=== PATIENT | male | born 1955 | race Caucasian/White ===

== ENCOUNTER → 2016-10-24 | Outpatient (CLI) | payer MEDICARE, OTHER ==
[~2016-10-24] MED LIST: ACET-784 PO; BISA10S PR; CEFT1FRO3 IV; CEPH500 PO; DIVA500T35 PO; LEVO150 PO; OLAN10TA3 PO; PALI3 PO; PANT40TA25 PO; SENN-30 PO; SULF-168 PO; TRAZ-147 PO; TRI115O TP; VITAD1000 PO
[2016-10-24 12:22] LABS: BASOPHILS % (AUTO) 0.4 % (0.0-2.0); EOSINOPHILS % (AUTO) 8.4 % (1.0-6.0); HEMATOCRIT 38.7 % (41-53); HEMOGLOBIN 12.6 g/dL (13.5-17.5); LYMPHOCYTES % (AUTO) 31.9 % (22.0-44.0); MEAN CORPUSCULAR HEMOGLOBIN 30.7 pg (26.0-34.0); MEAN CORPUSCULAR HGB CONC 32.7 G/dL (31.0-37.0); MEAN CORPUSCULAR VOLUME 94 fL (80-100); MONOCYTES # (AUTO) 0.8 K/uL (0.1-1.0); MONOCYTES % (AUTO) 8.4 % (2.0-9.0); NEUTROPHILS # (AUTO) 4.7 K/uL (1.8-7.7); NEUTROPHILS % (AUTO) 50.9 % (40.0-70.0); PLATELET COUNT (AUTO) 225 K/uL (150-450); RED BLOOD CELL COUNT(AUTO) 4.12 MIL/uL (4.50-5.90); RED CELL DISTRIBUTION WIDTH 13.9 % (11.5-14.5); WHITE BLOOD COUNT (AUTO) 9.3 K/uL (4.5-11.0)
[2016-10-24 12:54] LABS: CALCIUM, TOTAL 8.9 mg/dL (8.8-10.5); CREATININE 1.79 mg/dL (0.60-1.30); THYROID STIMULATING HORMONE 0.11 uIU/mL (0.36-3.74)
== END | disposition home or self-care (01) ==
LOC: LABPV 11:18
PROVIDERS: ATTEND Internal Medicine
DX: E20.9 Hypoparathyroidism, unspecified (principal); E03.9 Hypothyroidism, unspecified; K59.00 Constipation, unspecified
CPT/HCPCS: 84443

== ENCOUNTER 2019-07-01 14:30 | Inpatient (IN) | payer MEDICARE, MEDICAID ==
[~2019-07-01] VITALS: Ht 182.9 cm; Wt 82.9 kg
[~2019-07-01 14:30] MED LIST changes: -BISA10S PR; +BISA10SU11 PR; -CEFT1FRO3 IV; -CEPH500 PO; +DIVA-78 PO; -DIVA500T35 PO; -PALI3 PO; +SENN-176 PO; -SENN-30 PO; -SULF-168 PO; -TRAZ-147 PO; +TRAZ-220 PO; -TRI115O TP; -VITAD1000 PO
[2019-07-01 14:39] VITALS: BP 119/77
[2019-07-01] MEDS ORDERED: FISH1CAP27 PO (15:08)
[2019-07-01] MEDS ORDERED: ASPI81 PO (15:08)
[2019-07-01] MEDS ORDERED: LEVO112T4 PO (15:08)
[2019-07-01] MEDS ORDERED: ERGO400C PO (15:08)
[2019-07-01] MEDS ORDERED: POTA99TA25 PO (15:08)
[2019-07-01] MEDS ORDERED: OLAN10TA3 PO (15:08)
[2019-07-01] MEDS ORDERED: FURO20 PO (15:08)
[2019-07-01] MEDS ORDERED: MIRT15 PO (15:08)
[2019-07-01] MEDS ORDERED: DOXY150T5 PO (15:08)
[2019-07-01] MEDS ORDERED: QUET100T PO (15:08)
[2019-07-01] MEDS ORDERED: DOCU-275 PO (15:08)
[2019-07-01 16:30] VITALS: BP 122/85
[2019-07-01] MEDS ORDERED: -PHARMACY VACCINE NOTE- MISC ONE (18:30)
[2019-07-01] MEDS ORDERED: CloNIDine HCL 0.1 MG TABLET PO PRN (22:00)
[2019-07-01] MEDS ORDERED: ONDANSETRON HCL 4 MG TABLET PO PRN (22:00)
[2019-07-01] MEDS ORDERED: LOPERAMIDE HCL 2 MG CAPSULE PO PRN (22:00)
[2019-07-01] MEDS ORDERED: MAGNESIUM HYDROXIDE SUSPENSION 30 ML UDCUP PO PRN (22:00)
[2019-07-01] MEDS ORDERED: NICOTINE 14 MG/24 HOUR PATCH TD PRN (22:00)
[2019-07-01] MEDS ORDERED: PETROLATUM,WHITE 28 GM JELLY TP PRN (22:00)
[2019-07-01] MEDS ORDERED: MAG HYDROX/AL HYDROX/SIMETH ES 30 ML SUSPENSION UDCUP PO PRN (22:00)
[2019-07-01] MEDS ORDERED: ALBUTEROL SULFATE HFA 90 MCG/PUFF 8 GM INHALER IH PRN (22:00)
[2019-07-01] MEDS ORDERED: GuaiFENesin/D-METHORPHAN [SUGAR-FREE] 200-20MG/10 ML SYRUP UDCUP PO PRN (22:00)
[2019-07-01] MEDS: LORazepam 2 MG TABLET PO PRN (23:25)
[2019-07-02 00:14] VITALS: BP 150/99
[2019-07-02 01:59] VITALS: BP 117/75
[2019-07-02 03:24] VITALS: BP 117/75
[2019-07-02] MEDS: LEVOTHYROXINE SODIUM 75 MCG TABLET PO SCH (06:47)
[2019-07-02 07:11] LABS: BASOPHILS % (AUTO) 1.2 % (0.0-2.0); EOSINOPHILS % (AUTO) 4.6 % (1.0-6.0); HEMATOCRIT 29.6 % (41-53); HEMOGLOBIN 10.1 g/dL (13.5-17.5); LYMPHOCYTES # (AUTO) 2.5 K/uL (1.0-4.8); LYMPHOCYTES % (AUTO) 32.4 % (22.0-44.0); MEAN CORPUSCULAR HEMOGLOBIN 29.3 pg (26.0-34.0); MEAN CORPUSCULAR VOLUME 86 fL (80-100); MONOCYTES # (AUTO) 0.7 K/uL (0.1-1.0); NEUTROPHILS % (AUTO) 52.8 % (40.0-70.0); PLATELET COUNT (AUTO) 465 K/uL (150-450); RED BLOOD CELL COUNT(AUTO) 3.44 MIL/uL (4.50-5.90); RED CELL DISTRIBUTION WIDTH 15.2 % (11.5-14.5)
[2019-07-02 07:33] LABS: APPEARANCE,URINE CLEAR (CLEAR); BILIRUBIN,URINE NEGATIVE (NEGATIVE); GLUCOSE, URINE (UA) NEGATIVE (NEGATIVE); KETONES,URINE NEGATIVE (NEGATIVE); LEUKOCYTE ESTERASE ,URINE NEGATIVE (NEGATIVE); NITRATE,URINE NEGATIVE (NEGATIVE); OCCULT BLOOD,URINE MODERATE (NEGATIVE); PH,URINE 5.5 (5.0-8.0); PROTEIN,URINE NEGATIVE (NEGATIVE); UROBILINOGEN,URINE 0.2 mg/dL (<=1.0)
[2019-07-02 07:35] LABS: ALBUMIN 2.9 g/dL (3.4-5.0); BILIRUBIN,TOTAL 0.3 mg/dL (0.1-1.0); CALCIUM, TOTAL 8.6 mg/dL (8.8-10.5); CHOL/HDL RATIO 2.8 (4.2-7.3); CREATININE 1.22 mg/dL (0.60-1.30); FREE T4 (FREE THYROXINE) 1.46 ng/dL (0.76-1.46); POTASSIUM 4.4 mmol/L (3.5-5.1); THYROID STIMULATING HORMONE 2.2 uIU/mL (0.36-3.74); TOTAL PROTEIN, SERUM 5.8 g/dL (6.4-8.2)
[2019-07-02 07:38] LABS: AMPHET/METH SCREEN,URINE NEGATIVE (NEGATIVE); BARBITURATE SCREEN, URINE NEGATIVE (NEGATIVE); BENZODIAZEPINES SCREEN,URINE NEGATIVE (NEGATIVE); CANNABINOID SCREEN,URINE NEGATIVE (NEGATIVE); COCAINE SCREEN,URINE NEGATIVE (NEGATIVE); METHADONE SCREEN, URINE NEGATIVE (NEGATIVE); OPIATE SCREEN,URINE NEGATIVE (NEGATIVE); PHENCYCLIDINE SCREEN,URINE NEGATIVE (NEGATIVE)
[2019-07-02 08:00] LABS: BACTERIA,URINE None Seen /HPF (None Seen); RBC,URINE 0-2 /HPF (0-2); SQUAMOUS EPITHELIAL CELL,UR Few /LPF (None Seen); WBC,URINE 0-2 /HPF (0-5)
[2019-07-02 08:22] VITALS: BP 102/67
[2019-07-02] MEDS: CHOLECALCIFEROL (VIT D3) 1,000 UNITS TABLET PO SCH (08:44)
[2019-07-02] MEDS: ASPIRIN 81 MG CHEWABLE TABLET PO SCH (08:44)
[2019-07-02] MEDS: OMEGA-3/DHA/EPA/FISH OIL 1,000 MG CAPSULE PO SCH (08:44)
[2019-07-02] MEDS: DOXYCYCLINE HYCLATE 100 MG CAPSULE PO SCH ×2 (08:44→16:13)
[2019-07-02] MEDS: NICOTINE 21 MG/24 HOUR PATCH TD SCH (08:50)
[2019-07-02] MEDS ORDERED: FUROSEMIDE 20 MG TABLET PO SCH (09:00)
[2019-07-02] MEDS ORDERED: CHOL100018 PO (15:57)
[2019-07-02] MEDS ORDERED: SLOWK8 PO (15:57)
[2019-07-02] MEDS ORDERED: DOXY100C40 PO (15:57)
[2019-07-02] MEDS ORDERED: LEVO25TA9 PO (15:57)
[2019-07-02] MEDS ORDERED: LEVO200 PO (15:57)
[2019-07-02] MEDS: LEVOFLOXACIN 500 MG TABLET PO SCH (16:13)
[2019-07-02 16:19] VITALS: BP 125/77
[2019-07-02] MEDS: FUROSEMIDE 20 MG TABLET PO SCH (16:33)
[2019-07-02 17:49] VITALS: BP 125/77
[2019-07-02] MEDS: QUEtiapine FUMARATE 200 MG TABLET PO SCH (20:15)
[2019-07-02] MEDS: MIRTAZAPINE 15 MG TABLET PO SCH (20:19)
[2019-07-02] MEDS: OLANZapine 7.5 MG TABLET PO SCH (20:42)
[2019-07-03 05:43] VITALS: BP 100/60
[2019-07-03] MEDS: LEVOTHYROXINE SODIUM 75 MCG TABLET PO SCH (06:46)
[2019-07-03 08:49] VITALS: BP 135/84
[2019-07-03] MEDS: DOXYCYCLINE HYCLATE 100 MG CAPSULE PO SCH ×2 (10:02→16:44)
[2019-07-03] MEDS: FUROSEMIDE 20 MG TABLET PO SCH ×2 (10:03→16:44)
[2019-07-03] MEDS: LEVOFLOXACIN 500 MG TABLET PO SCH (10:03)
[2019-07-03] MEDS: OMEGA-3/DHA/EPA/FISH OIL 1,000 MG CAPSULE PO SCH (10:03)
[2019-07-03] MEDS: CHOLECALCIFEROL (VIT D3) 1,000 UNITS TABLET PO SCH (10:03)
[2019-07-03] MEDS: NICOTINE 21 MG/24 HOUR PATCH TD SCH (10:03)
[2019-07-03] MEDS: ASPIRIN 81 MG CHEWABLE TABLET PO SCH (10:04)
[2019-07-03] MEDS: LORazepam 2 MG TABLET PO PRN (16:48)
[2019-07-03 18:02] VITALS: BP 132/89
[2019-07-03] MEDS: OLANZapine 7.5 MG TABLET PO SCH (21:46)
[2019-07-03] MEDS: MIRTAZAPINE 15 MG TABLET PO SCH (21:46)
[2019-07-03] MEDS: QUEtiapine FUMARATE 200 MG TABLET PO SCH (21:47)
[2019-07-04] MEDS: LEVOTHYROXINE SODIUM 75 MCG TABLET PO SCH (07:00)
[2019-07-04] MEDS: ASPIRIN 81 MG CHEWABLE TABLET PO SCH (08:47)
[2019-07-04] MEDS: FUROSEMIDE 20 MG TABLET PO SCH ×2 (08:48→17:46)
[2019-07-04] MEDS: CHOLECALCIFEROL (VIT D3) 1,000 UNITS TABLET PO SCH (08:48)
[2019-07-04] MEDS: OMEGA-3/DHA/EPA/FISH OIL 1,000 MG CAPSULE PO SCH (08:48)
[2019-07-04] MEDS: LEVOFLOXACIN 500 MG TABLET PO SCH (08:48)
[2019-07-04] MEDS: IBUPROFEN 400 MG TABLET PO PRN (08:50)
[2019-07-04] MEDS: NICOTINE 21 MG/24 HOUR PATCH TD SCH (08:53)
[2019-07-04 09:23] VITALS: BP 100/77
[2019-07-04] MEDS: ACETAMINOPHEN 325 MG TABLET PO PRN (14:27)
[2019-07-04] MEDS: LORazepam 2 MG TABLET PO PRN (16:08)
[2019-07-04 16:21] VITALS: BP 129/85
[2019-07-04] MEDS: QUEtiapine FUMARATE 200 MG TABLET PO SCH (22:52)
[2019-07-04] MEDS: OLANZapine 7.5 MG TABLET PO SCH (22:52)
[2019-07-04] MEDS: MIRTAZAPINE 15 MG TABLET PO SCH (22:52)
[2019-07-05 05:58] VITALS: BP 115/75
[2019-07-05] MEDS: LEVOTHYROXINE SODIUM 75 MCG TABLET PO SCH (07:13)
[2019-07-05 07:33] LABS: CALCIUM, TOTAL 9.4 mg/dL (8.8-10.5); CREATININE 1.63 mg/dL (0.60-1.30); POTASSIUM 4.5 mmol/L (3.5-5.1)
[2019-07-05] MEDS: LEVOFLOXACIN 500 MG TABLET PO SCH (08:18)
[2019-07-05] MEDS: FUROSEMIDE 20 MG TABLET PO SCH ×2 (08:19→16:19)
[2019-07-05] MEDS: ASPIRIN 81 MG CHEWABLE TABLET PO SCH (08:19)
[2019-07-05] MEDS: CHOLECALCIFEROL (VIT D3) 1,000 UNITS TABLET PO SCH (08:19)
[2019-07-05] MEDS: OMEGA-3/DHA/EPA/FISH OIL 1,000 MG CAPSULE PO SCH (08:19)
[2019-07-05] MEDS: NICOTINE 21 MG/24 HOUR PATCH TD SCH (08:24)
[2019-07-05 14:32] VITALS: BP 100/67
[2019-07-05 16:59] VITALS: BP 130/66
[2019-07-05 17:00] VITALS: BP 131/66
[2019-07-05] MEDS: LORazepam 2 MG TABLET PO PRN (19:09)
[2019-07-05] MEDS: OLANZapine 10 MG TABLET PO SCH (20:04)
[2019-07-05] MEDS: MIRTAZAPINE 15 MG TABLET PO SCH (20:04)
[2019-07-05] MEDS: QUEtiapine FUMARATE 300 MG TABLET PO SCH (20:04)
[2019-07-06 05:13] VITALS: BP 123/82
[2019-07-06] MEDS: LEVOTHYROXINE SODIUM 75 MCG TABLET PO SCH (06:45)
[2019-07-06] MEDS: CHOLECALCIFEROL (VIT D3) 1,000 UNITS TABLET PO SCH (09:04)
[2019-07-06] MEDS: LEVOFLOXACIN 500 MG TABLET PO SCH (09:04)
[2019-07-06] MEDS: ASPIRIN 81 MG CHEWABLE TABLET PO SCH (09:04)
[2019-07-06] MEDS: OMEGA-3/DHA/EPA/FISH OIL 1,000 MG CAPSULE PO SCH (09:05)
[2019-07-06] MEDS: NICOTINE 21 MG/24 HOUR PATCH TD SCH (09:05)
[2019-07-06] MEDS: FUROSEMIDE 20 MG TABLET PO SCH (09:05)
[2019-07-06 09:45] VITALS: BP 105/67
[2019-07-06] MEDS: IBUPROFEN 400 MG TABLET PO PRN (10:06)
[2019-07-06 10:10] VITALS: BP 111/72
[2019-07-06 11:08] VITALS: BP 109/67
[2019-07-06 17:53] VITALS: BP 115/80
[2019-07-06] MEDS: ACETAMINOPHEN 325 MG TABLET PO PRN (17:57)
[2019-07-06] MEDS: QUEtiapine FUMARATE 300 MG TABLET PO SCH (20:39)
[2019-07-06] MEDS: MIRTAZAPINE 15 MG TABLET PO SCH (20:39)
[2019-07-06] MEDS: OLANZapine 10 MG TABLET PO SCH (20:39)
[2019-07-07] MEDS: ZOLPIDEM TARTRATE 10 MG TABLET PO PRN ×2 (00:07→20:28)
[2019-07-07 00:42] VITALS: BP 114/80
[2019-07-07] MEDS: LEVOTHYROXINE SODIUM 75 MCG TABLET PO SCH (06:49)
[2019-07-07] MEDS: CHOLECALCIFEROL (VIT D3) 1,000 UNITS TABLET PO SCH (08:00)
[2019-07-07] MEDS: NICOTINE 21 MG/24 HOUR PATCH TD SCH (08:01)
[2019-07-07] MEDS: LEVOFLOXACIN 500 MG TABLET PO SCH (08:01)
[2019-07-07] MEDS: OMEGA-3/DHA/EPA/FISH OIL 1,000 MG CAPSULE PO SCH (08:01)
[2019-07-07] MEDS: FUROSEMIDE 20 MG TABLET PO SCH (08:01)
[2019-07-07] MEDS: ASPIRIN 81 MG CHEWABLE TABLET PO SCH (08:01)
[2019-07-07 09:31] VITALS: BP 125/79
[2019-07-07] MEDS: ACETAMINOPHEN 325 MG TABLET PO PRN (09:54)
[2019-07-07 16:12] VITALS: BP 124/77
[2019-07-07] MEDS: QUEtiapine FUMARATE 100 MG TABLET PO PRN (16:20)
[2019-07-07] MEDS: OLANZapine 5 MG TABLET PO SCH (20:02)
[2019-07-07] MEDS: MIRTAZAPINE 15 MG TABLET PO SCH (20:03)
[2019-07-07] MEDS: QUEtiapine FUMARATE 200 MG TABLET PO SCH (20:04)
[2019-07-08 02:45] VITALS: BP 137/83
[2019-07-08] MEDS: IBUPROFEN 400 MG TABLET PO PRN (02:49)
[2019-07-08] MEDS: LORazepam 2 MG TABLET PO PRN ×2 (02:54→19:46)
[2019-07-08] MEDS: LEVOTHYROXINE SODIUM 75 MCG TABLET PO SCH (06:27)
[2019-07-08] MEDS: FUROSEMIDE 20 MG TABLET PO SCH (07:58)
[2019-07-08] MEDS: OMEGA-3/DHA/EPA/FISH OIL 1,000 MG CAPSULE PO SCH (07:59)
[2019-07-08] MEDS: CHOLECALCIFEROL (VIT D3) 1,000 UNITS TABLET PO SCH (07:59)
[2019-07-08] MEDS: ASPIRIN 81 MG CHEWABLE TABLET PO SCH (07:59)
[2019-07-08] MEDS: LEVOFLOXACIN 500 MG TABLET PO SCH (07:59)
[2019-07-08] MEDS: NICOTINE 21 MG/24 HOUR PATCH TD SCH (08:00)
[2019-07-08 10:11] VITALS: BP 115/78
[2019-07-08] MEDS: OLANZapine 5 MG TABLET PO SCH (19:46)
[2019-07-08] MEDS: QUEtiapine FUMARATE 200 MG TABLET PO SCH (19:46)
[2019-07-08] MEDS: MIRTAZAPINE 15 MG TABLET PO SCH (19:46)
[2019-07-08 19:49] VITALS: BP 120/87
[2019-07-09 00:50] VITALS: BP 138/93
[2019-07-09 03:49] VITALS: BP 127/89
[2019-07-09] MEDS: IBUPROFEN 400 MG TABLET PO PRN (03:51)
[2019-07-09] MEDS: LEVOTHYROXINE SODIUM 75 MCG TABLET PO SCH (06:34)
[2019-07-09] MEDS: NICOTINE 21 MG/24 HOUR PATCH TD SCH (08:14)
[2019-07-09] MEDS: LEVOFLOXACIN 500 MG TABLET PO SCH (08:14)
[2019-07-09] MEDS: CHOLECALCIFEROL (VIT D3) 1,000 UNITS TABLET PO SCH (08:14)
[2019-07-09] MEDS: ASPIRIN 81 MG CHEWABLE TABLET PO SCH (08:14)
[2019-07-09] MEDS: OMEGA-3/DHA/EPA/FISH OIL 1,000 MG CAPSULE PO SCH (08:15)
[2019-07-09] MEDS: FUROSEMIDE 20 MG TABLET PO SCH (08:15)
[2019-07-09 08:51] LABS: CALCIUM, TOTAL 9.2 mg/dL (8.8-10.5); CREATININE 1.58 mg/dL (0.60-1.30); POTASSIUM 4.2 mmol/L (3.5-5.1)
[2019-07-09 09:57] VITALS: BP 122/80
[2019-07-09 17:49] VITALS: BP 140/87
[2019-07-09] MEDS: QUEtiapine FUMARATE 200 MG TABLET PO SCH (21:31)
[2019-07-09] MEDS: OLANZapine 5 MG TABLET PO SCH (21:31)
[2019-07-09] MEDS: MIRTAZAPINE 15 MG TABLET PO SCH (21:31)
[2019-07-10 04:10] VITALS: BP 118/76
[2019-07-10] MEDS: ACETAMINOPHEN 325 MG TABLET PO PRN ×2 (04:12→14:15)
[2019-07-10] MEDS: LEVOTHYROXINE SODIUM 75 MCG TABLET PO SCH (07:04)
[2019-07-10] MEDS: LEVOFLOXACIN 500 MG TABLET PO SCH (08:56)
[2019-07-10] MEDS: OMEGA-3/DHA/EPA/FISH OIL 1,000 MG CAPSULE PO SCH (08:56)
[2019-07-10] MEDS: CHOLECALCIFEROL (VIT D3) 1,000 UNITS TABLET PO SCH (08:56)
[2019-07-10] MEDS: FUROSEMIDE 20 MG TABLET PO SCH (08:56)
[2019-07-10] MEDS: ASPIRIN 81 MG CHEWABLE TABLET PO SCH (08:56)
[2019-07-10] MEDS: NICOTINE 21 MG/24 HOUR PATCH TD SCH (08:58)
[2019-07-10 10:49] VITALS: BP 106/83
[2019-07-10 14:15] VITALS: BP 112/86
[2019-07-10 18:25] VITALS: BP 116/84
[2019-07-10] MEDS: IBUPROFEN 400 MG TABLET PO PRN (18:25)
[2019-07-10] MEDS: LORazepam 2 MG TABLET PO PRN ×2 (18:25→18:34)
[2019-07-10] MEDS: QUEtiapine FUMARATE 100 MG TABLET PO PRN (18:35)
[2019-07-10 19:13] VITALS: BP 113/81
[2019-07-10 19:25] VITALS: BP 101/63
[2019-07-10] MEDS: MIRTAZAPINE 15 MG TABLET PO SCH (21:23)
[2019-07-10] MEDS: QUEtiapine FUMARATE 200 MG TABLET PO SCH (21:23)
[2019-07-11 03:49] VITALS: BP 112/76
[2019-07-11] MEDS: LEVOTHYROXINE SODIUM 75 MCG TABLET PO SCH (06:52)
[2019-07-11] MEDS: CHOLECALCIFEROL (VIT D3) 1,000 UNITS TABLET PO SCH (09:10)
[2019-07-11] MEDS: OMEGA-3/DHA/EPA/FISH OIL 1,000 MG CAPSULE PO SCH (09:12)
[2019-07-11] MEDS: ASPIRIN 81 MG CHEWABLE TABLET PO SCH (09:12)
[2019-07-11] MEDS: NICOTINE 21 MG/24 HOUR PATCH TD SCH (09:13)
[2019-07-11] MEDS: LEVOFLOXACIN 500 MG TABLET PO SCH (09:13)
[2019-07-11 10:17] VITALS: BP 110/63
[2019-07-11 16:26] VITALS: BP 114/82
[2019-07-11] MEDS: MIRTAZAPINE 15 MG TABLET PO SCH (20:33)
[2019-07-11] MEDS: QUEtiapine FUMARATE 200 MG TABLET PO SCH (20:33)
[2019-07-11 21:09] VITALS: BP 129/77
[2019-07-11] MEDS: IBUPROFEN 400 MG TABLET PO PRN (21:09)
[2019-07-12 01:25] VITALS: BP 116/61
[2019-07-12] MEDS: ZOLPIDEM TARTRATE 10 MG TABLET PO PRN (01:27)
[2019-07-12 03:25] VITALS: BP 110/72
[2019-07-12] MEDS: ACETAMINOPHEN 325 MG TABLET PO PRN (03:31)
[2019-07-12] MEDS: LEVOTHYROXINE SODIUM 75 MCG TABLET PO SCH (07:03)
[2019-07-12 08:00] VITALS: BP 127/74
[2019-07-12] MEDS: ASPIRIN 81 MG CHEWABLE TABLET PO SCH (08:19)
[2019-07-12] MEDS: DOCUSATE SODIUM 100 MG CAPSULE PO PRN (08:19)
[2019-07-12] MEDS: FUROSEMIDE 20 MG TABLET PO SCH (08:20)
[2019-07-12] MEDS: LEVOFLOXACIN 500 MG TABLET PO SCH (08:20)
[2019-07-12] MEDS: OMEGA-3/DHA/EPA/FISH OIL 1,000 MG CAPSULE PO SCH (08:20)
[2019-07-12] MEDS: NICOTINE 21 MG/24 HOUR PATCH TD SCH (08:22)
[2019-07-12] MEDS: CHOLECALCIFEROL (VIT D3) 1,000 UNITS TABLET PO SCH (08:22)
[2019-07-12] MEDS: IBUPROFEN 400 MG TABLET PO PRN (09:31)
[2019-07-12 16:00] VITALS: BP 96/63
[2019-07-12] MEDS: QUEtiapine FUMARATE 200 MG TABLET PO SCH (20:29)
[2019-07-12] MEDS: MIRTAZAPINE 15 MG TABLET PO SCH (20:29)
[2019-07-13] MEDS: LEVOTHYROXINE SODIUM 75 MCG TABLET PO SCH (06:42)
[2019-07-13 07:12] LABS: CALCIUM, TOTAL 9.6 mg/dL (8.8-10.5); CREATININE 1.55 mg/dL (0.60-1.30)
[2019-07-13] MEDS: LEVOFLOXACIN 500 MG TABLET PO SCH (07:56)
[2019-07-13] MEDS: OMEGA-3/DHA/EPA/FISH OIL 1,000 MG CAPSULE PO SCH (07:57)
[2019-07-13] MEDS: LORazepam 2 MG TABLET PO PRN ×2 (07:57→15:39)
[2019-07-13] MEDS: ASPIRIN 81 MG CHEWABLE TABLET PO SCH (07:57)
[2019-07-13] MEDS: CHOLECALCIFEROL (VIT D3) 1,000 UNITS TABLET PO SCH (07:57)
[2019-07-13] MEDS: NICOTINE 21 MG/24 HOUR PATCH TD SCH (07:59)
[2019-07-13] MEDS: QUEtiapine FUMARATE 100 MG TABLET PO PRN ×2 (09:20→15:39)
[2019-07-13 09:31] VITALS: BP 132/78
[2019-07-13 10:31] VITALS: BP 124/72
[2019-07-13 13:08] VITALS: BP 123/71
[2019-07-13 16:34] VITALS: BP 140/79
[2019-07-13] MEDS: MIRTAZAPINE 15 MG TABLET PO SCH (20:43)
[2019-07-13] MEDS: ZOLPIDEM TARTRATE 10 MG TABLET PO PRN (20:43)
[2019-07-14 01:35] VITALS: BP 130/77
[2019-07-14] MEDS: LORazepam 2 MG TABLET PO PRN (01:42)
[2019-07-14] MEDS: LEVOTHYROXINE SODIUM 75 MCG TABLET PO SCH (06:44)
[2019-07-14] MEDS: ASPIRIN 81 MG CHEWABLE TABLET PO SCH (08:13)
[2019-07-14] MEDS: OMEGA-3/DHA/EPA/FISH OIL 1,000 MG CAPSULE PO SCH (08:13)
[2019-07-14] MEDS: CHOLECALCIFEROL (VIT D3) 1,000 UNITS TABLET PO SCH (08:14)
[2019-07-14] MEDS: LEVOFLOXACIN 500 MG TABLET PO SCH (08:14)
[2019-07-14] MEDS: FUROSEMIDE 20 MG TABLET PO SCH (08:14)
[2019-07-14] MEDS: NICOTINE 21 MG/24 HOUR PATCH TD SCH (08:14)
[2019-07-14 09:35] VITALS: BP 141/81
[2019-07-14 16:10] VITALS: BP 135/84
[2019-07-14 19:25] VITALS: BP 149/86
[2019-07-14] MEDS: IBUPROFEN 400 MG TABLET PO PRN (19:25)
[2019-07-14] MEDS: MIRTAZAPINE 15 MG TABLET PO SCH (20:50)
[2019-07-15 03:35] VITALS: BP 124/73
[2019-07-15] MEDS: LORazepam 2 MG TABLET PO PRN ×2 (03:43→17:34)
[2019-07-15] MEDS: QUEtiapine FUMARATE 100 MG TABLET PO PRN ×2 (03:43→17:34)
[2019-07-15] MEDS: LEVOTHYROXINE SODIUM 75 MCG TABLET PO SCH (06:52)
[2019-07-15] MEDS: ACETAMINOPHEN 325 MG TABLET PO PRN (06:53)
[2019-07-15] MEDS: CHOLECALCIFEROL (VIT D3) 1,000 UNITS TABLET PO SCH (08:02)
[2019-07-15] MEDS: LEVOFLOXACIN 500 MG TABLET PO SCH (08:02)
[2019-07-15] MEDS: ASPIRIN 81 MG CHEWABLE TABLET PO SCH (08:02)
[2019-07-15] MEDS: OMEGA-3/DHA/EPA/FISH OIL 1,000 MG CAPSULE PO SCH (08:02)
[2019-07-15] MEDS: NICOTINE 21 MG/24 HOUR PATCH TD SCH (08:03)
[2019-07-15 10:57] VITALS: BP 112/68
[2019-07-15 16:16] VITALS: BP 127/79
[2019-07-15] MEDS: MIRTAZAPINE 15 MG TABLET PO SCH (22:28)
[2019-07-15] MEDS: ZOLPIDEM TARTRATE 10 MG TABLET PO PRN (22:33)
[2019-07-16 03:31] VITALS: BP 121/72
[2019-07-16] MEDS: LORazepam 2 MG TABLET PO PRN ×2 (03:36→19:20)
[2019-07-16] MEDS: LEVOTHYROXINE SODIUM 75 MCG TABLET PO SCH (07:24)
[2019-07-16 08:00] VITALS: BP 124/78
[2019-07-16] MEDS: CHOLECALCIFEROL (VIT D3) 1,000 UNITS TABLET PO SCH (08:06)
[2019-07-16] MEDS: LEVOFLOXACIN 500 MG TABLET PO SCH (08:07)
[2019-07-16] MEDS: FUROSEMIDE 20 MG TABLET PO SCH (08:07)
[2019-07-16] MEDS: OMEGA-3/DHA/EPA/FISH OIL 1,000 MG CAPSULE PO SCH (08:07)
[2019-07-16] MEDS: ASPIRIN 81 MG CHEWABLE TABLET PO SCH (08:07)
[2019-07-16] MEDS: QUEtiapine FUMARATE 100 MG TABLET PO PRN ×2 (08:09→19:20)
[2019-07-16] MEDS: NICOTINE 21 MG/24 HOUR PATCH TD SCH (08:14)
[2019-07-16] MEDS ORDERED: BACITRACIN 28.4 GM OINTMENT TP PRN (08:45)
[2019-07-16] MEDS: IBUPROFEN 400 MG TABLET PO PRN (11:15)
[2019-07-16 18:17] VITALS: BP 123/72
[2019-07-16] MEDS: MIRTAZAPINE 15 MG TABLET PO SCH (20:12)
[2019-07-17 02:20] VITALS: BP 107/69
[2019-07-17 04:20] VITALS: BP 121/77
[2019-07-17] MEDS: IBUPROFEN 400 MG TABLET PO PRN ×2 (04:25→16:28)
[2019-07-17] MEDS: LEVOTHYROXINE SODIUM 75 MCG TABLET PO SCH (06:38)
[2019-07-17 06:50] LABS: CALCIUM, TOTAL 8.9 mg/dL (8.8-10.5); CREATININE 1.37 mg/dL (0.60-1.30); POTASSIUM 4.3 mmol/L (3.5-5.1)
[2019-07-17] MEDS: ASPIRIN 81 MG CHEWABLE TABLET PO SCH (07:52)
[2019-07-17] MEDS: OMEGA-3/DHA/EPA/FISH OIL 1,000 MG CAPSULE PO SCH (07:52)
[2019-07-17] MEDS: CHOLECALCIFEROL (VIT D3) 1,000 UNITS TABLET PO SCH (07:52)
[2019-07-17] MEDS: NICOTINE 21 MG/24 HOUR PATCH TD SCH (07:53)
[2019-07-17 08:03] VITALS: BP 127/73
[2019-07-17 16:28] VITALS: BP 130/76
[2019-07-17] MEDS: MIRTAZAPINE 15 MG TABLET PO SCH (21:12)
[2019-07-17] MEDS: DOCUSATE SODIUM 100 MG CAPSULE PO PRN (23:45)
[2019-07-18] MEDS: LORazepam 2 MG TABLET PO PRN (03:44)
[2019-07-18] MEDS: QUEtiapine FUMARATE 100 MG TABLET PO PRN (03:44)
[2019-07-18] MEDS: LEVOTHYROXINE SODIUM 75 MCG TABLET PO SCH (07:17)
[2019-07-18 08:15] VITALS: BP 113/75
[2019-07-18] MEDS: FUROSEMIDE 20 MG TABLET PO SCH (08:17)
[2019-07-18] MEDS: ASPIRIN 81 MG CHEWABLE TABLET PO SCH (08:17)
[2019-07-18] MEDS: OMEGA-3/DHA/EPA/FISH OIL 1,000 MG CAPSULE PO SCH (08:17)
[2019-07-18] MEDS: NICOTINE 21 MG/24 HOUR PATCH TD SCH (08:17)
[2019-07-18] MEDS: CHOLECALCIFEROL (VIT D3) 1,000 UNITS TABLET PO SCH (08:17)
[2019-07-18 19:55] VITALS: BP 119/84
[2019-07-18] MEDS: MIRTAZAPINE 15 MG TABLET PO SCH (20:54)
[2019-07-19 01:00] VITALS: BP 127/70
[2019-07-19] MEDS: IBUPROFEN 400 MG TABLET PO PRN (01:03)
[2019-07-19] MEDS: LEVOTHYROXINE SODIUM 75 MCG TABLET PO SCH (06:45)
[2019-07-19 08:02] VITALS: BP 114/75
[2019-07-19] MEDS: ASPIRIN 81 MG CHEWABLE TABLET PO SCH (08:09)
[2019-07-19] MEDS: OMEGA-3/DHA/EPA/FISH OIL 1,000 MG CAPSULE PO SCH (08:09)
[2019-07-19] MEDS: NICOTINE 21 MG/24 HOUR PATCH TD SCH (08:10)
[2019-07-19] MEDS: CHOLECALCIFEROL (VIT D3) 1,000 UNITS TABLET PO SCH (08:10)
== END 2019-07-19 15:35 | disposition home or self-care (01) | DRG 885 ==
LOC: B2X 15:18 → 3EX 07-02 17:43
DX: F20.0 Paranoid schizophrenia (principal); N18.3 Chronic kidney disease, stage 3 (moderate); B15.9 Hepatitis A without hepatic coma; L03.116 Cellulitis of left lower limb; L03.115 Cellulitis of right lower limb; E78.5 Hyperlipidemia, unspecified; E03.9 Hypothyroidism, unspecified; E55.9 Vitamin D deficiency, unspecified; F17.200 Nicotine dependence, unspecified, uncomplicated; G47.10 Hypersomnia, unspecified; I12.9 Hypertensive chronic kidney disease with stage 1 through stage 4 chronic kidney disease, or unspecified chronic kidney disease; K59.09 Other constipation; F32.9 Major depressive disorder, single episode, unspecified
CPT/HCPCS: 80307; 83036; 84439; 84443; 87081; 93970; G0378

== ENCOUNTER 2019-07-21 13:26 | Emergency (ER) | payer MEDICARE, MEDICAID ==
[~2019-07-21 13:26] MED LIST changes: -ACET-784 PO; +ASPI81 PO; -BISA10SU11 PR; +CHOL100018 PO; -DIVA-78 PO; +FISH1CAP27 PO; +FURO20 PO; -LEVO150 PO; +LEVO200 PO; +MIRT15 PO; -OLAN10TA3 PO; -PANT40TA25 PO; -SENN-176 PO; -TRAZ-220 PO
[2019-07-21] MEDS ORDERED: LORazepam 2 MG/ML VIAL IM ONE (15:15)
[2019-07-21] MEDS ORDERED: QUEtiapine FUMARATE 25 MG TABLET PO ONE (15:30)
[2019-07-21 15:35] LABS: EOSINOPHILS % (AUTO) 3.6 % (1.0-6.0); HEMATOCRIT 35.7 % (41-53); HEMOGLOBIN 11.7 g/dL (13.5-17.5); LYMPHOCYTES # (AUTO) 4.3 K/uL (1.0-4.8); LYMPHOCYTES % (AUTO) 33.9 % (22.0-44.0); MEAN CORPUSCULAR HEMOGLOBIN 28.5 pg (26.0-34.0); MEAN CORPUSCULAR HGB CONC 32.7 G/dL (31.0-37.0); MEAN CORPUSCULAR VOLUME 87 fL (80-100); MONOCYTES # (AUTO) 1.1 K/uL (0.1-1.0); MONOCYTES % (AUTO) 8.7 % (2.0-9.0); NEUTROPHILS # (AUTO) 6.8 K/uL (1.8-7.7); NEUTROPHILS % (AUTO) 52.8 % (40.0-70.0); PLATELET COUNT (AUTO) 351 K/uL (150-450); RED CELL DISTRIBUTION WIDTH 15.3 % (11.5-14.5)
[2019-07-21 15:51] LABS: CALCIUM, TOTAL 9.2 mg/dL (8.8-10.5); CREATININE 1.56 mg/dL (0.60-1.30); POTASSIUM 3.6 mmol/L (3.5-5.1)
[2019-07-21 16:06] LABS: ALBUMIN 3.6 g/dL (3.4-5.0); BILIRUBIN,TOTAL 0.4 mg/dL (0.1-1.0); FREE T4 (FREE THYROXINE) 1.25 ng/dL (0.76-1.46); THYROID STIMULATING HORMONE 3.78 uIU/mL (0.36-3.74); TOTAL PROTEIN, SERUM 7.7 g/dL (6.4-8.2)
[2019-07-21 17:14] LABS: APPEARANCE,URINE CLEAR (CLEAR); BILIRUBIN,URINE NEGATIVE (NEGATIVE); GLUCOSE, URINE (UA) NEGATIVE (NEGATIVE); KETONES,URINE NEGATIVE (NEGATIVE); LEUKOCYTE ESTERASE ,URINE NEGATIVE (NEGATIVE); NITRATE,URINE NEGATIVE (NEGATIVE); OCCULT BLOOD,URINE NEGATIVE (NEGATIVE); PH,URINE 5.5 (5.0-8.0); PROTEIN,URINE NEGATIVE (NEGATIVE); UROBILINOGEN,URINE 0.2 mg/dL (<=1.0)
[2019-07-21 17:21] LABS: AMPHET/METH SCREEN,URINE NEGATIVE (NEGATIVE); BARBITURATE SCREEN, URINE NEGATIVE (NEGATIVE); BENZODIAZEPINES SCREEN,URINE NEGATIVE (NEGATIVE); CANNABINOID SCREEN,URINE NEGATIVE (NEGATIVE); COCAINE SCREEN,URINE NEGATIVE (NEGATIVE); METHADONE SCREEN, URINE NEGATIVE (NEGATIVE); OPIATE SCREEN,URINE NEGATIVE (NEGATIVE)
[2019-07-21 17:24] LABS: PHENCYCLIDINE SCREEN,URINE NEGATIVE (NEGATIVE)
[2019-07-21] MEDS ORDERED: QUEtiapine FUMARATE 300 MG TABLET PO ONE (18:45)
[2019-07-21 19:04] VITALS: BP 113/71
== END 2019-07-21 19:08 | disposition home or self-care (01) ==
LOC: EMS 13:28
DX: F20.9 Schizophrenia, unspecified (principal); E03.9 Hypothyroidism, unspecified; E78.00 Pure hypercholesterolemia, unspecified; I10 Essential (primary) hypertension; Z98.890 Other specified postprocedural states; Z79.82 Long term (current) use of aspirin; Z79.899 Other long term (current) drug therapy; Z88.8 Allergy status to other drugs, medicaments and biological substances; Z88.5 Allergy status to narcotic agent; Z88.0 Allergy status to penicillin
CPT/HCPCS: 36415; 71045; 80053; 80307; 81003; 84439; 84443; 85025; 96372; 99284; J2060

== ENCOUNTER 2019-07-23 09:14 | Inpatient (IN) | payer MEDICARE, MEDICAID ==
[~2019-07-23] VITALS: Ht 182.9 cm; Wt 84.4 kg
[2019-07-23] MEDS ORDERED: QUET100T PO (09:50)
[2019-07-23] MEDS ORDERED: LORA-1001 PO (09:50)
[2019-07-23] MEDS ORDERED: CHOL100018 PO (10:58)
[2019-07-23] MEDS ORDERED: LEVO25TA9 PO (10:58)
[2019-07-23] MEDS ORDERED: HALOPERIDOL LACTATE 5 MG/ML VIAL IM ONE (11:00)
[2019-07-23] MEDS ORDERED: LORazepam 2 MG/ML VIAL IM ONE (11:00)
[2019-07-23] MEDS ORDERED: DiphenhydrAMINE HCL 50 MG/ML VIAL IM ONE (11:00)
[2019-07-23] MEDS ORDERED: HALOPERIDOL 5 MG TABLET PO PRN (11:45)
[2019-07-23] MEDS ORDERED: ZOLPIDEM TARTRATE 10 MG TABLET PO PRN (11:45)
[2019-07-23] MEDS ORDERED: LORazepam 2 MG TABLET PO PRN (11:45)
[2019-07-23 11:48] LABS: BASOPHILS % (AUTO) 0.6 % (0.0-2.0); EOSINOPHILS % (AUTO) 4.6 % (1.0-6.0); HEMATOCRIT 33.6 % (41-53); HEMOGLOBIN 11.1 g/dL (13.5-17.5); LYMPHOCYTES # (AUTO) 2.1 K/uL (1.0-4.8); LYMPHOCYTES % (AUTO) 24.1 % (22.0-44.0); MEAN CORPUSCULAR HEMOGLOBIN 28.6 pg (26.0-34.0); MEAN CORPUSCULAR VOLUME 87 fL (80-100); MONOCYTES # (AUTO) 0.6 K/uL (0.1-1.0); MONOCYTES % (AUTO) 6.8 % (2.0-9.0); NEUTROPHILS # (AUTO) 5.6 K/uL (1.8-7.7); NEUTROPHILS % (AUTO) 63.9 % (40.0-70.0); PLATELET COUNT (AUTO) 324 K/uL (150-450); RED BLOOD CELL COUNT(AUTO) 3.88 MIL/uL (4.50-5.90); RED CELL DISTRIBUTION WIDTH 15.6 % (11.5-14.5)
[2019-07-23 11:58] LABS: ANION GAP 10 mmol/L (8-16); CALCIUM, TOTAL 9.1 mg/dL (8.8-10.5); CARBON DIOXIDE 24 mmol/L (22-29); CHLORIDE 107 mmol/L (98-107); CREATININE 1.41 mg/dL (0.60-1.30); GLOMERULAR FILTR. RATE CALC 51 mL/min (>60); GLUCOSE,RANDOM 122 mg/dL (70-110); SODIUM SERUM 141 mmol/L (136-145); UREA NITROGEN, BLOOD 33 mg/dL (7-18)
[2019-07-23 12:03] LABS: ALANINE AMINOTRANSFERASE 20 U/L (12-78); ALBUMIN 3.3 g/dL (3.4-5.0); ALKALINE PHOSPHATASE 103 U/L (46-116); ASPARTATE AMINOTRANSFERASE 26 U/L (15-37); BILIRUBIN,TOTAL 0.1 mg/dL (0.1-1.0)
[2019-07-23] MEDS ORDERED: DOCUSATE SODIUM 100 MG CAPSULE PO PRN (17:00)
[2019-07-23] MEDS ORDERED: PETROLATUM,WHITE 28 GM JELLY TP PRN (17:00)
[2019-07-23] MEDS ORDERED: MAG HYDROX/AL HYDROX/SIMETH ES 30 ML SUSPENSION UDCUP PO PRN (17:00)
[2019-07-23] MEDS ORDERED: LOPERAMIDE HCL 2 MG CAPSULE PO PRN (17:00)
[2019-07-23] MEDS ORDERED: MAGNESIUM HYDROXIDE SUSPENSION 30 ML UDCUP PO PRN (17:00)
[2019-07-23] MEDS ORDERED: GuaiFENesin/D-METHORPHAN [SUGAR-FREE] 200-20MG/10 ML SYRUP UDCUP PO PRN (17:00)
[2019-07-23] MEDS ORDERED: CloNIDine HCL 0.1 MG TABLET PO PRN (17:00)
[2019-07-23] MEDS ORDERED: ONDANSETRON HCL 4 MG TABLET PO PRN (17:00)
[2019-07-23] MEDS ORDERED: ACETAMINOPHEN 325 MG TABLET PO PRN (17:00)
[2019-07-23] MEDS ORDERED: ALBUTEROL SULFATE HFA 90 MCG/PUFF 8 GM INHALER IH PRN (17:00)
[2019-07-23] MEDS ORDERED: NICOTINE 14 MG/24 HOUR PATCH TD PRN (17:00)
[2019-07-23 17:41] LABS: AMPHET/METH SCREEN,URINE NEGATIVE (NEGATIVE); BARBITURATE SCREEN, URINE NEGATIVE (NEGATIVE); BENZODIAZEPINES SCREEN,URINE NEGATIVE (NEGATIVE); CANNABINOID SCREEN,URINE NEGATIVE (NEGATIVE); COCAINE SCREEN,URINE NEGATIVE (NEGATIVE); METHADONE SCREEN, URINE NEGATIVE (NEGATIVE); OPIATE SCREEN,URINE NEGATIVE (NEGATIVE)
[2019-07-23 17:42] LABS: PHENCYCLIDINE SCREEN,URINE NEGATIVE (NEGATIVE)
[2019-07-24] MEDS ORDERED: LEVOTHYROXINE SODIUM 200 MCG TABLET PO SCH (06:30)
[2019-07-24] MEDS: LEVOTHYROXINE SODIUM 75 MCG TABLET PO SCH (06:46)
[2019-07-24 07:59] LABS: CHOL/HDL RATIO 2.2 (4.2-7.3)
[2019-07-24 08:21] VITALS: BP 118/85
[2019-07-24] MEDS: OMEGA-3/DHA/EPA/FISH OIL 1,000 MG CAPSULE PO SCH (08:37)
[2019-07-24] MEDS: FUROSEMIDE 20 MG TABLET PO SCH (08:37)
[2019-07-24] MEDS: ASPIRIN 81 MG CHEWABLE TABLET PO SCH (08:37)
[2019-07-24] MEDS: CHOLECALCIFEROL (VIT D3) 1,000 UNITS TABLET PO SCH (08:37)
[2019-07-24] MEDS ORDERED: MIRTAZAPINE 15 MG TABLET PO SCH (13:15)
[2019-07-24] MEDS: QUEtiapine FUMARATE 100 MG TABLET PO SCH (16:13)
[2019-07-24 16:16] VITALS: BP 140/76
[2019-07-24] MEDS: MIRTAZAPINE 15 MG TABLET PO SCH (20:13)
[2019-07-25 00:20] VITALS: BP 119/72
[2019-07-25] MEDS: LEVOTHYROXINE SODIUM 75 MCG TABLET PO SCH (06:26)
[2019-07-25] MEDS: CHOLECALCIFEROL (VIT D3) 1,000 UNITS TABLET PO SCH (08:18)
[2019-07-25] MEDS: QUEtiapine FUMARATE 100 MG TABLET PO SCH (08:18)
[2019-07-25] MEDS: OMEGA-3/DHA/EPA/FISH OIL 1,000 MG CAPSULE PO SCH (08:19)
[2019-07-25] MEDS: ASPIRIN 81 MG CHEWABLE TABLET PO SCH (08:19)
[2019-07-25 08:25] VITALS: BP 123/68
[2019-07-25] MEDS: NICOTINE 7 MG/24 HOUR PATCH TD SCH (09:14)
[2019-07-25 16:23] VITALS: BP 135/75
[2019-07-25] MEDS: IBUPROFEN 400 MG TABLET PO PRN (16:25)
[2019-07-25] MEDS: MIRTAZAPINE 15 MG TABLET PO SCH (20:34)
[2019-07-25] MEDS: QUEtiapine FUMARATE 300 MG TABLET PO SCH (20:34)
[2019-07-26 02:16] VITALS: BP 105/63
[2019-07-26] MEDS: LEVOTHYROXINE SODIUM 75 MCG TABLET PO SCH (06:48)
[2019-07-26 08:14] VITALS: BP 117/62
[2019-07-26] MEDS: ASPIRIN 81 MG CHEWABLE TABLET PO SCH (08:26)
[2019-07-26] MEDS: OMEGA-3/DHA/EPA/FISH OIL 1,000 MG CAPSULE PO SCH (08:26)
[2019-07-26] MEDS: CHOLECALCIFEROL (VIT D3) 1,000 UNITS TABLET PO SCH (08:27)
[2019-07-26] MEDS: NICOTINE 7 MG/24 HOUR PATCH TD SCH (08:28)
[2019-07-26] MEDS: FUROSEMIDE 20 MG TABLET PO SCH (08:32)
[2019-07-26 16:17] VITALS: BP 139/80
[2019-07-26] MEDS: MIRTAZAPINE 15 MG TABLET PO SCH (20:43)
[2019-07-26] MEDS: QUEtiapine FUMARATE 300 MG TABLET PO SCH (20:43)
[2019-07-27 01:01] VITALS: BP 117/80
[2019-07-27] MEDS: LEVOTHYROXINE SODIUM 75 MCG TABLET PO SCH (07:23)
[2019-07-27 08:15] VITALS: BP 121/75
[2019-07-27] MEDS: ASPIRIN 81 MG CHEWABLE TABLET PO SCH (08:50)
[2019-07-27] MEDS: OMEGA-3/DHA/EPA/FISH OIL 1,000 MG CAPSULE PO SCH (08:51)
[2019-07-27] MEDS: NICOTINE 7 MG/24 HOUR PATCH TD SCH (08:51)
[2019-07-27] MEDS: FUROSEMIDE 20 MG TABLET PO SCH (08:51)
[2019-07-27] MEDS: CHOLECALCIFEROL (VIT D3) 1,000 UNITS TABLET PO SCH (08:51)
[2019-07-27 10:58] VITALS: BP 130/88
[2019-07-27] MEDS: IBUPROFEN 400 MG TABLET PO PRN (10:58)
[2019-07-27] MEDS ORDERED: QUET300T18 PO (12:01)
[2019-07-27] MEDS ORDERED: MIRT15 PO (12:01)
[2019-07-27] MEDS ORDERED: LEVO75 PO (12:32)
[2019-07-27 16:27] VITALS: BP 117/80
[2019-07-27] MEDS ORDERED: QUEtiapine FUMARATE 300 MG TABLET PO ONE (17:00)
[2019-07-27] MEDS ORDERED: MIRTAZAPINE 15 MG TABLET PO ONE (17:00)
== END 2019-07-27 17:30 | DRG 885 ==
LOC: EMS 09:19 → B2X 07-24 01:38
DX: F20.0 Paranoid schizophrenia (principal); N18.9 Chronic kidney disease, unspecified; R45.851 Suicidal ideations; I13.0 Hypertensive heart and chronic kidney disease with heart failure and stage 1 through stage 4 chronic kidney disease, or unspecified chronic kidney disease; D64.9 Anemia, unspecified; E03.9 Hypothyroidism, unspecified; E78.00 Pure hypercholesterolemia, unspecified; E78.5 Hyperlipidemia, unspecified; F17.200 Nicotine dependence, unspecified, uncomplicated; I50.9 Heart failure, unspecified; I89.0 Lymphedema, not elsewhere classified; Z79.899 Other long term (current) drug therapy; Z91.14 Patient's other noncompliance with medication regimen; Z91.5 Personal history of self-harm; Z88.0 Allergy status to penicillin; Z88.8 Allergy status to other drugs, medicaments and biological substances
CPT/HCPCS: 87081; 96372; G0480; J1200; J1630; J2060

== ENCOUNTER 2019-08-04 12:37 | Inpatient (IN) | payer MEDICARE, MEDICAID ==
[~2019-08-04] VITALS: Ht 175.3 cm; Wt 86.7 kg
[~2019-08-04 12:37] MED LIST changes: -LEVO200 PO; +LEVO75 PO; +QUET300T18 PO
[2019-08-04 14:27] LABS: BASOPHILS % (AUTO) 0.6 % (0.0-2.0); EOSINOPHILS % (AUTO) 3.5 % (1.0-6.0); HEMATOCRIT 28.6 % (41-53); HEMOGLOBIN 9.6 g/dL (13.5-17.5); LYMPHOCYTES # (AUTO) 2.1 K/uL (1.0-4.8); LYMPHOCYTES % (AUTO) 23.7 % (22.0-44.0); MEAN CORPUSCULAR HEMOGLOBIN 28.6 pg (26.0-34.0); MEAN CORPUSCULAR HGB CONC 33.4 G/dL (31.0-37.0); MEAN CORPUSCULAR VOLUME 85 fL (80-100); MONOCYTES # (AUTO) 0.7 K/uL (0.1-1.0); MONOCYTES % (AUTO) 8.1 % (2.0-9.0); NEUTROPHILS # (AUTO) 5.8 K/uL (1.8-7.7); NEUTROPHILS % (AUTO) 64.1 % (40.0-70.0); PLATELET COUNT (AUTO) 362 K/uL (150-450); RED BLOOD CELL COUNT(AUTO) 3.35 MIL/uL (4.50-5.90)
[2019-08-04 14:42] LABS: ANION GAP 11 mmol/L (8-16); CALCIUM, TOTAL 8.6 mg/dL (8.8-10.5); CARBON DIOXIDE 23 mmol/L (22-29); CHLORIDE 106 mmol/L (98-107); CREATININE 1.63 mg/dL (0.60-1.30); GLOMERULAR FILTR. RATE CALC 43 mL/min (>60); GLUCOSE,RANDOM 108 mg/dL (70-110); SODIUM SERUM 140 mmol/L (136-145); UREA NITROGEN, BLOOD 32 mg/dL (7-18)
[2019-08-04 14:47] LABS: ALANINE AMINOTRANSFERASE 27 U/L (12-78); ALBUMIN 2.9 g/dL (3.4-5.0); ALKALINE PHOSPHATASE 94 U/L (46-116); ASPARTATE AMINOTRANSFERASE 34 U/L (15-37); BILIRUBIN,TOTAL 0.2 mg/dL (0.1-1.0); TOTAL PROTEIN, SERUM 6.7 g/dL (6.4-8.2)
[2019-08-04 16:53] LABS: AMPHET/METH SCREEN,URINE NEGATIVE (NEGATIVE); BARBITURATE SCREEN, URINE NEGATIVE (NEGATIVE); BENZODIAZEPINES SCREEN,URINE NEGATIVE (NEGATIVE); CANNABINOID SCREEN,URINE NEGATIVE (NEGATIVE); COCAINE SCREEN,URINE NEGATIVE (NEGATIVE); METHADONE SCREEN, URINE NEGATIVE (NEGATIVE); OPIATE SCREEN,URINE NEGATIVE (NEGATIVE)
[2019-08-04 16:55] LABS: PHENCYCLIDINE SCREEN,URINE NEGATIVE (NEGATIVE)
[2019-08-04] MEDS ORDERED: IBUPROFEN 600 MG TABLET PO ONE (17:15)
[2019-08-04] MEDS ORDERED: QUEtiapine FUMARATE 100 MG TABLET PO ONE (17:15)
[2019-08-04] MEDS: MIRTAZAPINE 15 MG TABLET PO SCH (21:18)
[2019-08-04] MEDS: QUEtiapine FUMARATE 300 MG TABLET PO SCH (21:18)
[2019-08-04 21:28] VITALS: BP 122/59
[2019-08-05 04:35] VITALS: BP 124/83
[2019-08-05] MEDS: HALOPERIDOL 5 MG TABLET PO PRN ×3 (08:03→17:00)
[2019-08-05] MEDS: OMEGA-3/DHA/EPA/FISH OIL 1,000 MG CAPSULE PO SCH (09:19)
[2019-08-05] MEDS: FUROSEMIDE 20 MG TABLET PO SCH (09:20)
[2019-08-05] MEDS: ASPIRIN 81 MG CHEWABLE TABLET PO SCH (09:20)
[2019-08-05] MEDS: CHOLECALCIFEROL (VIT D3) 1,000 UNITS TABLET PO SCH (09:21)
[2019-08-05] MEDS: NICOTINE 14 MG/24 HOUR PATCH TD SCH (11:07)
[2019-08-05] MEDS: DIVALPROEX SODIUM 250 MG DR TABLET PO SCH ×2 (12:09→20:28)
[2019-08-05] MEDS: LORazepam 2 MG TABLET PO PRN (17:00)
[2019-08-05] MEDS: MIRTAZAPINE 15 MG TABLET PO SCH (20:28)
[2019-08-05] MEDS: QUEtiapine FUMARATE 300 MG TABLET PO SCH (20:28)
[2019-08-05 20:31] VITALS: BP 139/84
[2019-08-06 04:07] VITALS: BP 141/83
[2019-08-06] MEDS: LEVOTHYROXINE SODIUM 75 MCG TABLET PO SCH (06:42)
[2019-08-06] MEDS: CHOLECALCIFEROL (VIT D3) 1,000 UNITS TABLET PO SCH (08:14)
[2019-08-06] MEDS: ASPIRIN 81 MG CHEWABLE TABLET PO SCH (08:14)
[2019-08-06] MEDS: NICOTINE 14 MG/24 HOUR PATCH TD SCH (08:14)
[2019-08-06] MEDS: LORazepam 2 MG TABLET PO PRN (08:15)
[2019-08-06] MEDS: DIVALPROEX SODIUM 250 MG DR TABLET PO SCH ×2 (08:15→20:27)
[2019-08-06] MEDS: FUROSEMIDE 20 MG TABLET PO SCH (08:15)
[2019-08-06] MEDS: OMEGA-3/DHA/EPA/FISH OIL 1,000 MG CAPSULE PO SCH (08:15)
[2019-08-06 08:30] VITALS: BP 137/82
[2019-08-06 17:00] VITALS: BP 141/89
[2019-08-06] MEDS: QUEtiapine FUMARATE 300 MG TABLET PO SCH (20:27)
[2019-08-06] MEDS: MIRTAZAPINE 15 MG TABLET PO SCH (20:27)
[2019-08-07 06:34] VITALS: BP 116/71
[2019-08-07] MEDS: LEVOTHYROXINE SODIUM 75 MCG TABLET PO SCH (07:10)
[2019-08-07] MEDS: ASPIRIN 81 MG CHEWABLE TABLET PO SCH (08:42)
[2019-08-07] MEDS: CHOLECALCIFEROL (VIT D3) 1,000 UNITS TABLET PO SCH (08:42)
[2019-08-07] MEDS: LORazepam 2 MG TABLET PO PRN ×2 (08:43→13:31)
[2019-08-07] MEDS: HALOPERIDOL 5 MG TABLET PO PRN (08:43)
[2019-08-07] MEDS: DIVALPROEX SODIUM 250 MG DR TABLET PO SCH ×2 (08:43→21:29)
[2019-08-07] MEDS: OMEGA-3/DHA/EPA/FISH OIL 1,000 MG CAPSULE PO SCH (08:43)
[2019-08-07] MEDS: FUROSEMIDE 20 MG TABLET PO SCH (08:44)
[2019-08-07] MEDS: NICOTINE 14 MG/24 HOUR PATCH TD SCH (08:44)
[2019-08-07 10:09] VITALS: BP 110/70
[2019-08-07 10:15] VITALS: BP 110/70
[2019-08-07 16:13] VITALS: BP 137/81
[2019-08-07] MEDS: LOPERAMIDE HCL 2 MG CAPSULE PO PRN (16:47)
[2019-08-07] MEDS: QUEtiapine FUMARATE 300 MG TABLET PO SCH (21:29)
[2019-08-07] MEDS: MIRTAZAPINE 15 MG TABLET PO SCH (21:29)
[2019-08-08] MEDS: LEVOTHYROXINE SODIUM 75 MCG TABLET PO SCH (06:17)
[2019-08-08] MEDS: NICOTINE 14 MG/24 HOUR PATCH TD SCH (08:32)
[2019-08-08] MEDS: ASPIRIN 81 MG CHEWABLE TABLET PO SCH (08:33)
[2019-08-08] MEDS: DIVALPROEX SODIUM 250 MG DR TABLET PO SCH ×2 (08:34→20:52)
[2019-08-08] MEDS: CHOLECALCIFEROL (VIT D3) 1,000 UNITS TABLET PO SCH (08:34)
[2019-08-08] MEDS: OMEGA-3/DHA/EPA/FISH OIL 1,000 MG CAPSULE PO SCH (08:35)
[2019-08-08] MEDS: FUROSEMIDE 20 MG TABLET PO SCH (08:35)
[2019-08-08 14:10] VITALS: BP 111/67
[2019-08-08] MEDS ORDERED: MINERAL OIL/PETROLATUM 120 GM CREAM TP PRN (15:00)
[2019-08-08] MEDS: LOPERAMIDE HCL 2 MG CAPSULE PO PRN ×3 (15:52→22:36)
[2019-08-08 16:07] VITALS: BP 116/79
[2019-08-08] MEDS: QUEtiapine FUMARATE 300 MG TABLET PO SCH (20:52)
[2019-08-08] MEDS: MIRTAZAPINE 15 MG TABLET PO SCH (20:52)
[2019-08-09] MEDS: LEVOTHYROXINE SODIUM 75 MCG TABLET PO SCH (06:48)
[2019-08-09] MEDS: CHOLECALCIFEROL (VIT D3) 1,000 UNITS TABLET PO SCH (08:04)
[2019-08-09] MEDS: LOPERAMIDE HCL 2 MG CAPSULE PO PRN (08:04)
[2019-08-09] MEDS: ASPIRIN 81 MG CHEWABLE TABLET PO SCH (08:05)
[2019-08-09] MEDS: DIVALPROEX SODIUM 250 MG DR TABLET PO SCH ×2 (08:06→21:05)
[2019-08-09] MEDS: OMEGA-3/DHA/EPA/FISH OIL 1,000 MG CAPSULE PO SCH (08:07)
[2019-08-09] MEDS: FUROSEMIDE 20 MG TABLET PO SCH (08:07)
[2019-08-09] MEDS: NICOTINE 14 MG/24 HOUR PATCH TD SCH (08:07)
[2019-08-09] MEDS: LORazepam 2 MG TABLET PO PRN ×2 (08:37→15:45)
[2019-08-09 09:27] VITALS: BP 129/68
[2019-08-09 16:11] VITALS: BP 119/74
[2019-08-09 19:00] LABS: % IRON SATURATION 7.6 % (30-44)
[2019-08-09] MEDS: QUEtiapine FUMARATE 300 MG TABLET PO SCH (21:05)
[2019-08-09] MEDS: MIRTAZAPINE 15 MG TABLET PO SCH (21:05)
[2019-08-10] MEDS: ZOLPIDEM TARTRATE 10 MG TABLET PO PRN ×2 (03:03→20:07)
[2019-08-10] MEDS: LORazepam 2 MG TABLET PO PRN ×2 (03:03→09:35)
[2019-08-10] MEDS: LEVOTHYROXINE SODIUM 75 MCG TABLET PO SCH (07:26)
[2019-08-10] MEDS: CHOLECALCIFEROL (VIT D3) 1,000 UNITS TABLET PO SCH (08:21)
[2019-08-10] MEDS: OMEGA-3/DHA/EPA/FISH OIL 1,000 MG CAPSULE PO SCH (08:21)
[2019-08-10] MEDS: ASPIRIN 81 MG CHEWABLE TABLET PO SCH (08:21)
[2019-08-10] MEDS: DIVALPROEX SODIUM 250 MG DR TABLET PO SCH (08:21)
[2019-08-10] MEDS: FUROSEMIDE 20 MG TABLET PO SCH (08:21)
[2019-08-10] MEDS: HALOPERIDOL 5 MG TABLET PO PRN (08:23)
[2019-08-10] MEDS: NICOTINE 14 MG/24 HOUR PATCH TD SCH (08:25)
[2019-08-10 10:28] VITALS: BP 134/70
[2019-08-10] MEDS ORDERED: *PATIENT'S OWN MED [ENTER DRUG, DOSE, FREQUENCY IN COMMENTS] CLINICAL PRN (14:45)
[2019-08-10] MEDS: MIRTAZAPINE 15 MG TABLET PO SCH (20:03)
[2019-08-10] MEDS: DIVALPROEX SODIUM 500 MG DR TABLET PO SCH (20:03)
[2019-08-10] MEDS: QUEtiapine FUMARATE 200 MG TABLET PO SCH (20:03)
[2019-08-10 20:18] VITALS: BP 129/87
[2019-08-11 05:46] VITALS: BP 110/65
[2019-08-11] MEDS: LEVOTHYROXINE SODIUM 75 MCG TABLET PO SCH (06:24)
[2019-08-11 09:48] VITALS: BP 121/77
[2019-08-11] MEDS: CHOLECALCIFEROL (VIT D3) 1,000 UNITS TABLET PO SCH (10:00)
[2019-08-11] MEDS: DIVALPROEX SODIUM 500 MG DR TABLET PO SCH ×2 (10:00→20:08)
[2019-08-11] MEDS: ASPIRIN 81 MG CHEWABLE TABLET PO SCH (10:00)
[2019-08-11] MEDS: OMEGA-3/DHA/EPA/FISH OIL 1,000 MG CAPSULE PO SCH (10:01)
[2019-08-11] MEDS: FUROSEMIDE 20 MG TABLET PO SCH (10:01)
[2019-08-11] MEDS: LORazepam 2 MG TABLET PO PRN ×2 (10:03→16:21)
[2019-08-11] MEDS: LOPERAMIDE HCL 2 MG CAPSULE PO PRN (10:03)
[2019-08-11] MEDS: NICOTINE 14 MG/24 HOUR PATCH TD SCH (10:10)
[2019-08-11] MEDS: ARIPiprazole 10 MG TABLET PO SCH (12:34)
[2019-08-11 16:05] VITALS: BP 119/78
[2019-08-11] MEDS: LACTOBACILLUS ACIDOPHILUS/BULGARICUS GRANULES PACKET PO SCH (16:19)
[2019-08-11] MEDS: MetroNIDAZOLE 500 MG TABLET PO SCH (16:20)
[2019-08-11] MEDS: MIRTAZAPINE 15 MG TABLET PO SCH (20:08)
[2019-08-11] MEDS: QUEtiapine FUMARATE 200 MG TABLET PO SCH (20:08)
[2019-08-12] MEDS: LEVOTHYROXINE SODIUM 75 MCG TABLET PO SCH (06:09)
[2019-08-12] MEDS: ARIPiprazole 10 MG TABLET PO SCH (09:16)
[2019-08-12] MEDS: ASPIRIN 81 MG CHEWABLE TABLET PO SCH (09:16)
[2019-08-12] MEDS: OMEGA-3/DHA/EPA/FISH OIL 1,000 MG CAPSULE PO SCH (09:16)
[2019-08-12] MEDS: DIVALPROEX SODIUM 500 MG DR TABLET PO SCH ×2 (09:16→20:17)
[2019-08-12] MEDS: NICOTINE 14 MG/24 HOUR PATCH TD SCH (09:16)
[2019-08-12] MEDS: LACTOBACILLUS ACIDOPHILUS/BULGARICUS GRANULES PACKET PO SCH ×3 (09:17→17:37)
[2019-08-12] MEDS: MetroNIDAZOLE 500 MG TABLET PO SCH ×3 (09:17→16:32)
[2019-08-12] MEDS: CHOLECALCIFEROL (VIT D3) 1,000 UNITS TABLET PO SCH (09:17)
[2019-08-12] MEDS: FUROSEMIDE 20 MG TABLET PO SCH (09:17)
[2019-08-12] MEDS: LOPERAMIDE HCL 2 MG CAPSULE PO PRN (09:18)
[2019-08-12 10:48] VITALS: BP 116/74
[2019-08-12 16:25] VITALS: BP 116/76
[2019-08-12] MEDS: HALOPERIDOL 5 MG TABLET PO PRN (16:32)
[2019-08-12] MEDS: LORazepam 2 MG TABLET PO PRN (16:32)
[2019-08-12 16:39] VITALS: BP 116/76
[2019-08-12] MEDS: MIRTAZAPINE 15 MG TABLET PO SCH (20:17)
[2019-08-12] MEDS: QUEtiapine FUMARATE 200 MG TABLET PO SCH (20:17)
[2019-08-13 05:24] VITALS: BP 114/73
[2019-08-13] MEDS: LEVOTHYROXINE SODIUM 75 MCG TABLET PO SCH (07:05)
[2019-08-13 08:34] VITALS: BP 119/71
[2019-08-13] MEDS: FUROSEMIDE 20 MG TABLET PO SCH (08:35)
[2019-08-13] MEDS: OMEGA-3/DHA/EPA/FISH OIL 1,000 MG CAPSULE PO SCH (08:35)
[2019-08-13] MEDS: ARIPiprazole 10 MG TABLET PO SCH (08:35)
[2019-08-13] MEDS: MetroNIDAZOLE 500 MG TABLET PO SCH ×3 (08:37→16:41)
[2019-08-13] MEDS: CHOLECALCIFEROL (VIT D3) 1,000 UNITS TABLET PO SCH (08:39)
[2019-08-13] MEDS: DIVALPROEX SODIUM 500 MG DR TABLET PO SCH ×2 (08:39→20:24)
[2019-08-13] MEDS: LACTOBACILLUS ACIDOPHILUS/BULGARICUS GRANULES PACKET PO SCH ×3 (08:39→16:41)
[2019-08-13] MEDS: ASPIRIN 81 MG CHEWABLE TABLET PO SCH (08:39)
[2019-08-13] MEDS: HALOPERIDOL 5 MG TABLET PO PRN (08:40)
[2019-08-13] MEDS: NICOTINE 14 MG/24 HOUR PATCH TD SCH (09:22)
[2019-08-13] MEDS: LORazepam 2 MG TABLET PO PRN (12:22)
[2019-08-13 17:07] VITALS: BP 122/74
[2019-08-13] MEDS: LOPERAMIDE HCL 2 MG CAPSULE PO PRN (18:33)
[2019-08-13] MEDS: MIRTAZAPINE 15 MG TABLET PO SCH (20:24)
[2019-08-13] MEDS: QUEtiapine FUMARATE 200 MG TABLET PO SCH (20:24)
[2019-08-14 05:38] VITALS: BP 98/70
[2019-08-14 06:22] VITALS: BP 116/74
[2019-08-14] MEDS: LEVOTHYROXINE SODIUM 75 MCG TABLET PO SCH (07:11)
[2019-08-14 08:09] LABS: CREATININE 1.48 mg/dL (0.60-1.30); POTASSIUM 4.2 mmol/L (3.5-5.1)
[2019-08-14 08:59] VITALS: BP 126/79
[2019-08-14] MEDS: ARIPiprazole 10 MG TABLET PO SCH (09:36)
[2019-08-14] MEDS: MetroNIDAZOLE 500 MG TABLET PO SCH ×3 (09:36→16:37)
[2019-08-14] MEDS: OMEGA-3/DHA/EPA/FISH OIL 1,000 MG CAPSULE PO SCH (09:36)
[2019-08-14] MEDS: CHOLECALCIFEROL (VIT D3) 1,000 UNITS TABLET PO SCH (09:36)
[2019-08-14] MEDS: ASPIRIN 81 MG CHEWABLE TABLET PO SCH (09:37)
[2019-08-14] MEDS: DIVALPROEX SODIUM 500 MG DR TABLET PO SCH ×2 (09:37→20:20)
[2019-08-14] MEDS: LACTOBACILLUS ACIDOPHILUS/BULGARICUS GRANULES PACKET PO SCH ×3 (09:38→17:22)
[2019-08-14] MEDS: FUROSEMIDE 20 MG TABLET PO SCH (09:38)
[2019-08-14] MEDS: NICOTINE 14 MG/24 HOUR PATCH TD SCH (09:38)
[2019-08-14 17:58] VITALS: BP 123/80
[2019-08-14] MEDS: QUEtiapine FUMARATE 200 MG TABLET PO SCH (20:20)
[2019-08-14] MEDS: MIRTAZAPINE 15 MG TABLET PO SCH (20:20)
== END 2019-08-14 23:58 | disposition short-term general hospital (02) | DRG 885 ==
LOC: EMS 12:38 → 3EX 18:24
DX: F25.0 Schizoaffective disorder, bipolar type (principal); N18.9 Chronic kidney disease, unspecified; I13.0 Hypertensive heart and chronic kidney disease with heart failure and stage 1 through stage 4 chronic kidney disease, or unspecified chronic kidney disease; E44.0 Moderate protein-calorie malnutrition; R45.851 Suicidal ideations; K59.00 Constipation, unspecified; I50.9 Heart failure, unspecified; E78.00 Pure hypercholesterolemia, unspecified; F17.210 Nicotine dependence, cigarettes, uncomplicated; D64.9 Anemia, unspecified; E03.9 Hypothyroidism, unspecified; E55.9 Vitamin D deficiency, unspecified; E78.5 Hyperlipidemia, unspecified; G47.00 Insomnia, unspecified; I89.0 Lymphedema, not elsewhere classified; Z88.0 Allergy status to penicillin; Z88.8 Allergy status to other drugs, medicaments and biological substances; Z79.899 Other long term (current) drug therapy; Z81.8 Family history of other mental and behavioral disorders
CPT/HCPCS: 83540; 83550; 87081; G0378; G0480

== ENCOUNTER 2019-08-15 00:30 | Inpatient (IN) | payer MEDICARE, OTHER ==
[~2019-08-15] VITALS: Ht 182.9 cm; Wt 86.1 kg
[2019-08-15] VITALS (12 sets, daily range): BP systolic 90–118; BP diastolic 55–75
[2019-08-15] MEDS ORDERED: SODIUM CHLORIDE 0.9% 50 ML ONE (05:49)
[2019-08-15] MEDS: PANTOPRAZOLE SODIUM 80 MG in SODIUM CHLORIDE 0.9% 100 ML IV SCH ×2 (06:17→17:47)
[2019-08-15 06:24] LABS: BASOPHILS % (AUTO) 0.3 % (0.0-2.0); EOSINOPHILS % (AUTO) 0.5 % (1.0-6.0); LYMPHOCYTES # (AUTO) 2.4 K/uL (1.0-4.8); MEAN CORPUSCULAR HEMOGLOBIN 28.5 pg (26.0-34.0); MEAN CORPUSCULAR HGB CONC 33.4 G/dL (31.0-37.0); MEAN CORPUSCULAR VOLUME 85 fL (80-100); MONOCYTES # (AUTO) 0.6 K/uL (0.1-1.0); MONOCYTES % (AUTO) 6.8 % (2.0-9.0); NEUTROPHILS # (AUTO) 6.4 K/uL (1.8-7.7); NEUTROPHILS % (AUTO) 67.4 % (40.0-70.0); PLATELET COUNT (AUTO) 407 K/uL (150-450); RED BLOOD CELL COUNT(AUTO) 2.27 MIL/uL (4.50-5.90); RED CELL DISTRIBUTION WIDTH 14.7 % (11.5-14.5)
[2019-08-15 06:37] LABS: CALCIUM, TOTAL 8.3 mg/dL (8.8-10.5); CREATININE 1.85 mg/dL (0.60-1.30); POTASSIUM 4.4 mmol/L (3.5-5.1)
[2019-08-15 06:48] LABS: HEMOGLOBIN 6.5 g/dL (13.5-17.5)
[2019-08-15 06:49] LABS: HEMATOCRIT 19.3 % (41-53)
[2019-08-15] MEDS ORDERED: FUROSEMIDE 20 MG/2 ML VIAL IVP ONE (07:30)
[2019-08-15] MEDS ORDERED: ZOLPIDEM TARTRATE 5 MG TABLET PO PRN (10:30)
[2019-08-15] MEDS ORDERED: MAGNESIUM HYDROXIDE SUSPENSION 30 ML UDCUP PO PRN (10:30)
[2019-08-15] MEDS ORDERED: BISACODYL 10 MG RECTAL RECTAL SUPPOSITORY PR PRN (10:30)
[2019-08-15] MEDS ORDERED: HYDROCODONE/ACETAMINOPHEN 5-325 MG TABLET PO PRN (10:30)
[2019-08-15] MEDS ORDERED: MORPHINE SULFATE 2 MG/ML SYRINGE IVP PRN (10:30)
[2019-08-15 14:04] LABS: CALCIUM, TOTAL 8.2 mg/dL (8.8-10.5); CREATININE 2.01 mg/dL (0.60-1.30); POTASSIUM 4.9 mmol/L (3.5-5.1)
[2019-08-15 14:13] LABS: ALBUMIN 2.2 g/dL (3.4-5.0); BILIRUBIN,TOTAL 0.2 mg/dL (0.1-1.0); TOTAL PROTEIN, SERUM 4.7 g/dL (6.4-8.2)
[2019-08-15 14:52] LABS: INR 1.2 (0.9-1.1); PROTHROMBIN TIME 12.1 SEC (9.4-11.6)
[2019-08-15] MEDS ORDERED: SODIUM CHLORIDE 0.9% 1,000 ML ONE (15:09)
[2019-08-15] MEDS ORDERED: SODIUM CHLORIDE 0.9% 1,000 ML IV ONE (15:30)
[2019-08-15] MEDS ORDERED: FentaNYL CITRATE-PF 100 MCG/2 ML VIAL ONE (15:40)
[2019-08-15] MEDS ORDERED: MIDAZOLAM HCL 5 MG/ML VIAL ONE (15:40)
[2019-08-15] MEDS ORDERED: SODIUM CHLORIDE 0.9% 250 ML IV ONE (17:56)
[2019-08-15 18:20] LABS: BASOPHILS % (AUTO) 0.3 % (0.0-2.0); EOSINOPHILS % (AUTO) 0.5 % (1.0-6.0); LYMPHOCYTES % (AUTO) 14.1 % (22.0-44.0); MEAN CORPUSCULAR HEMOGLOBIN 27.9 pg (26.0-34.0); MEAN CORPUSCULAR HGB CONC 32.6 G/dL (31.0-37.0); MEAN CORPUSCULAR VOLUME 86 fL (80-100); MONOCYTES # (AUTO) 0.8 K/uL (0.1-1.0); MONOCYTES % (AUTO) 5.6 % (2.0-9.0); NEUTROPHILS # (AUTO) 11.4 K/uL (1.8-7.7); NEUTROPHILS % (AUTO) 79.5 % (40.0-70.0); PLATELET COUNT (AUTO) 434 K/uL (150-450); RED BLOOD CELL COUNT(AUTO) 2.21 MIL/uL (4.50-5.90); RED CELL DISTRIBUTION WIDTH 14.9 % (11.5-14.5)
[2019-08-15 18:38] LABS: HEMOGLOBIN 6.2 g/dL (13.5-17.5)
[2019-08-15] MEDS ORDERED: DOCUSATE SODIUM 100 MG CAPSULE PO SCH (21:00)
[2019-08-15] MEDS: POLYETHYLENE GLYCOL 3350 17 GM PACKET PO SCH (21:27)
[2019-08-15 23:29] LABS: BASOPHILS % (AUTO) 0.4 % (0.0-2.0); EOSINOPHILS % (AUTO) 0.8 % (1.0-6.0); LYMPHOCYTES # (AUTO) 2.1 K/uL (1.0-4.8); LYMPHOCYTES % (AUTO) 13.9 % (22.0-44.0); MEAN CORPUSCULAR HEMOGLOBIN 27.7 pg (26.0-34.0); MEAN CORPUSCULAR HGB CONC 32.6 G/dL (31.0-37.0); MEAN CORPUSCULAR VOLUME 85 fL (80-100); MONOCYTES # (AUTO) 1.1 K/uL (0.1-1.0); MONOCYTES % (AUTO) 7.4 % (2.0-9.0); NEUTROPHILS # (AUTO) 11.8 K/uL (1.8-7.7); NEUTROPHILS % (AUTO) 77.5 % (40.0-70.0); PLATELET COUNT (AUTO) 386 K/uL (150-450); RED BLOOD CELL COUNT(AUTO) 2.36 MIL/uL (4.50-5.90); RED CELL DISTRIBUTION WIDTH 15.3 % (11.5-14.5)
[2019-08-15 23:39] LABS: HEMATOCRIT 20.1 % (41-53); HEMOGLOBIN 6.5 g/dL (13.5-17.5)
[2019-08-16] VITALS (14 sets, daily range): BP systolic 101–140; BP diastolic 50–81
[2019-08-16] MEDS ORDERED: SODIUM CHLORIDE 0.9% 250 ML IV ONE (01:03)
[2019-08-16] MEDS: PANTOPRAZOLE SODIUM 80 MG in SODIUM CHLORIDE 0.9% 100 ML IV SCH ×3 (02:35→21:45)
[2019-08-16 06:26] LABS: BASOPHILS % (AUTO) 0.4 % (0.0-2.0); EOSINOPHILS % (AUTO) 0.7 % (1.0-6.0); HEMOGLOBIN 8.4 g/dL (13.5-17.5); LYMPHOCYTES # (AUTO) 2.3 K/uL (1.0-4.8); LYMPHOCYTES % (AUTO) 12.1 % (22.0-44.0); MEAN CORPUSCULAR HEMOGLOBIN 28.9 pg (26.0-34.0); MEAN CORPUSCULAR HGB CONC 33.7 G/dL (31.0-37.0); MEAN CORPUSCULAR VOLUME 86 fL (80-100); MONOCYTES # (AUTO) 1.3 K/uL (0.1-1.0); MONOCYTES % (AUTO) 6.7 % (2.0-9.0); NEUTROPHILS # (AUTO) 15.1 K/uL (1.8-7.7); NEUTROPHILS % (AUTO) 80.1 % (40.0-70.0); PLATELET COUNT (AUTO) 425 K/uL (150-450); RED BLOOD CELL COUNT(AUTO) 2.91 MIL/uL (4.50-5.90); RED CELL DISTRIBUTION WIDTH 15.1 % (11.5-14.5)
[2019-08-16] MEDS: LEVOTHYROXINE SODIUM 75 MCG TABLET PO SCH (06:40)
[2019-08-16 06:43] LABS: CALCIUM, TOTAL 8.6 mg/dL (8.8-10.5); CREATININE 1.82 mg/dL (0.60-1.30); POTASSIUM 3.9 mmol/L (3.5-5.1)
[2019-08-16] MEDS: ASPIRIN 81 MG CHEWABLE TABLET PO SCH (08:46)
[2019-08-16] MEDS: CHOLECALCIFEROL (VIT D3) 1,000 UNITS TABLET PO SCH (08:46)
[2019-08-16] MEDS: POLYETHYLENE GLYCOL 3350 17 GM PACKET PO SCH ×2 (08:49→21:00)
[2019-08-16] MEDS ORDERED: PANTOPRAZOLE SODIUM 40 MG DR TABLET PO SCH (09:00)
[2019-08-16] MEDS ORDERED: QUEtiapine FUMARATE 300 MG TABLET PO SCH (21:00)
[2019-08-16] MEDS: MIRTAZAPINE 15 MG TABLET PO SCH (21:46)
[2019-08-16 21:59] LABS: BASOPHILS % (AUTO) 0.3 % (0.0-2.0); EOSINOPHILS % (AUTO) 0.5 % (1.0-6.0); HEMATOCRIT 25.3 % (41-53); HEMOGLOBIN 8.5 g/dL (13.5-17.5); LYMPHOCYTES # (AUTO) 2.2 K/uL (1.0-4.8); MEAN CORPUSCULAR HEMOGLOBIN 28.8 pg (26.0-34.0); MEAN CORPUSCULAR HGB CONC 33.7 G/dL (31.0-37.0); MEAN CORPUSCULAR VOLUME 86 fL (80-100); MONOCYTES # (AUTO) 1.3 K/uL (0.1-1.0); MONOCYTES % (AUTO) 6.9 % (2.0-9.0); NEUTROPHILS # (AUTO) 14.9 K/uL (1.8-7.7); NEUTROPHILS % (AUTO) 80.3 % (40.0-70.0); PLATELET COUNT (AUTO) 466 K/uL (150-450); RED BLOOD CELL COUNT(AUTO) 2.96 MIL/uL (4.50-5.90); RED CELL DISTRIBUTION WIDTH 15.4 % (11.5-14.5)
[2019-08-16 22:09] LABS: CALCIUM, TOTAL 8.8 mg/dL (8.8-10.5); CREATININE 1.89 mg/dL (0.60-1.30); POTASSIUM 3.9 mmol/L (3.5-5.1)
[2019-08-16 22:15] LABS: BILIRUBIN,TOTAL 0.3 mg/dL (0.1-1.0); TOTAL PROTEIN, SERUM 6.5 g/dL (6.4-8.2)
[2019-08-17 00:35] VITALS: BP 107/65
[2019-08-17 03:57] VITALS: BP 107/73
[2019-08-17 06:15] LABS: BASOPHILS % (AUTO) 0.3 % (0.0-2.0); EOSINOPHILS % (AUTO) 1.7 % (1.0-6.0); HEMATOCRIT 22.3 % (41-53); HEMOGLOBIN 7.6 g/dL (13.5-17.5); LYMPHOCYTES # (AUTO) 2.3 K/uL (1.0-4.8); LYMPHOCYTES % (AUTO) 17.6 % (22.0-44.0); MEAN CORPUSCULAR VOLUME 85 fL (80-100); MONOCYTES # (AUTO) 0.9 K/uL (0.1-1.0); MONOCYTES % (AUTO) 7.4 % (2.0-9.0); NEUTROPHILS # (AUTO) 9.4 K/uL (1.8-7.7); PLATELET COUNT (AUTO) 434 K/uL (150-450); RED BLOOD CELL COUNT(AUTO) 2.62 MIL/uL (4.50-5.90); RED CELL DISTRIBUTION WIDTH 15.2 % (11.5-14.5)
[2019-08-17 06:35] LABS: ALBUMIN 2.7 g/dL (3.4-5.0); BILIRUBIN,TOTAL 0.2 mg/dL (0.1-1.0); CALCIUM, TOTAL 8.7 mg/dL (8.8-10.5); CREATININE 1.73 mg/dL (0.60-1.30); POTASSIUM 4.4 mmol/L (3.5-5.1); TOTAL PROTEIN, SERUM 6.1 g/dL (6.4-8.2)
[2019-08-17 10:19] LABS: THYROID STIMULATING HORMONE 50.71 uIU/mL (0.36-3.74)
[2019-08-17] MEDS: PANTOPRAZOLE SODIUM 40 MG DR TABLET PO SCH ×2 (10:35→20:34)
[2019-08-17] MEDS: ASPIRIN 81 MG CHEWABLE TABLET PO SCH (10:35)
[2019-08-17] MEDS: CHOLECALCIFEROL (VIT D3) 1,000 UNITS TABLET PO SCH (10:35)
[2019-08-17] MEDS: LEVOTHYROXINE SODIUM 75 MCG TABLET PO SCH (10:36)
[2019-08-17] MEDS: OMEGA-3/DHA/EPA/FISH OIL 1,000 MG CAPSULE PO SCH (10:36)
[2019-08-17] MEDS: POLYETHYLENE GLYCOL 3350 17 GM PACKET PO SCH ×2 (10:36→20:34)
[2019-08-17] MEDS: ARIPiprazole 10 MG TABLET PO SCH (10:37)
[2019-08-17] MEDS: DIVALPROEX SODIUM 500 MG DR TABLET PO SCH ×2 (10:37→20:34)
[2019-08-17 11:49] VITALS: BP 116/73
[2019-08-17 16:30] VITALS: BP 125/79
[2019-08-17 19:36] VITALS: BP 124/84
[2019-08-17] MEDS: MIRTAZAPINE 15 MG TABLET PO SCH (20:34)
[2019-08-17] MEDS: QUEtiapine FUMARATE 200 MG TABLET PO SCH (20:34)
[2019-08-17 22:59] VITALS: BP 104/64
[2019-08-18] VITALS (10 sets, daily range): BP systolic 92–121; BP diastolic 50–76
[2019-08-18] MEDS: LEVOTHYROXINE SODIUM 75 MCG TABLET PO SCH (05:28)
[2019-08-18 07:05] LABS: BASOPHILS % (AUTO) 0.4 % (0.0-2.0); LYMPHOCYTES # (AUTO) 2.8 K/uL (1.0-4.8); LYMPHOCYTES % (AUTO) 22.3 % (22.0-44.0); MEAN CORPUSCULAR HEMOGLOBIN 29.9 pg (26.0-34.0); MEAN CORPUSCULAR HGB CONC 34.7 G/dL (31.0-37.0); MEAN CORPUSCULAR VOLUME 86 fL (80-100); MONOCYTES % (AUTO) 8.2 % (2.0-9.0); NEUTROPHILS # (AUTO) 8.5 K/uL (1.8-7.7); NEUTROPHILS % (AUTO) 67.1 % (40.0-70.0); PLATELET COUNT (AUTO) 418 K/uL (150-450); RED BLOOD CELL COUNT(AUTO) 2.35 MIL/uL (4.50-5.90); RED CELL DISTRIBUTION WIDTH 15.6 % (11.5-14.5)
[2019-08-18 07:09] LABS: HEMATOCRIT 20.3 % (41-53)
[2019-08-18 07:27] LABS: ALBUMIN 2.6 g/dL (3.4-5.0); BILIRUBIN,TOTAL 0.2 mg/dL (0.1-1.0); CALCIUM, TOTAL 8.4 mg/dL (8.8-10.5); CREATININE 1.78 mg/dL (0.60-1.30); POTASSIUM 4.1 mmol/L (3.5-5.1); TOTAL PROTEIN, SERUM 5.9 g/dL (6.4-8.2)
[2019-08-18] MEDS: PANTOPRAZOLE SODIUM 40 MG DR TABLET PO SCH ×2 (08:53→22:33)
[2019-08-18] MEDS: OMEGA-3/DHA/EPA/FISH OIL 1,000 MG CAPSULE PO SCH (08:53)
[2019-08-18] MEDS: CHOLECALCIFEROL (VIT D3) 1,000 UNITS TABLET PO SCH (08:53)
[2019-08-18] MEDS: ARIPiprazole 10 MG TABLET PO SCH (08:53)
[2019-08-18] MEDS: DIVALPROEX SODIUM 500 MG DR TABLET PO SCH ×2 (08:53→22:33)
[2019-08-18] MEDS: ASPIRIN 81 MG CHEWABLE TABLET PO SCH (09:00)
[2019-08-18] MEDS: POLYETHYLENE GLYCOL 3350 17 GM PACKET PO SCH ×2 (09:00→21:00)
[2019-08-18] MEDS: FERROUS SULFATE 325 MG EC TABLET PO SCH ×2 (12:07→19:25)
[2019-08-18] MEDS: EPOETIN ALFA 10,000 UNITS/ML VIAL SQ SCH (12:07)
[2019-08-18] MEDS: NICOTINE 21 MG/24 HOUR PATCH TD SCH (13:09)
[2019-08-18] MEDS ORDERED: FUROSEMIDE 20 MG/2 ML VIAL IVP ONE (18:15)
[2019-08-18] MEDS ORDERED: ACETAMINOPHEN 325 MG TABLET PO ONE (18:15)
[2019-08-18] MEDS ORDERED: DiphenhydrAMINE HCL 50 MG/ML VIAL IVP ONE (18:15)
[2019-08-18] MEDS ORDERED: LOPERAMIDE HCL 2 MG CAPSULE PO PRN (21:45)
[2019-08-18] MEDS: QUEtiapine FUMARATE 200 MG TABLET PO SCH (22:32)
[2019-08-18] MEDS: MIRTAZAPINE 15 MG TABLET PO SCH (22:33)
[2019-08-19] VITALS (8 sets, daily range): BP systolic 92–132; BP diastolic 55–75
[2019-08-19] MEDS: LEVOTHYROXINE SODIUM 75 MCG TABLET PO SCH (06:06)
[2019-08-19 06:54] LABS: ALBUMIN 2.7 g/dL (3.4-5.0); BILIRUBIN,TOTAL 0.3 mg/dL (0.1-1.0); CALCIUM, TOTAL 8.6 mg/dL (8.8-10.5); CREATININE 1.84 mg/dL (0.60-1.30); POTASSIUM 4.3 mmol/L (3.5-5.1); TOTAL PROTEIN, SERUM 6.3 g/dL (6.4-8.2)
[2019-08-19 08:38] LABS: HEMATOCRIT 24.3 % (41-53); HEMOGLOBIN 8.2 g/dL (13.5-17.5)
[2019-08-19] MEDS: POLYETHYLENE GLYCOL 3350 17 GM PACKET PO SCH ×2 (09:00→21:00)
[2019-08-19] MEDS: ARIPiprazole 10 MG TABLET PO SCH (09:20)
[2019-08-19] MEDS: CHOLECALCIFEROL (VIT D3) 1,000 UNITS TABLET PO SCH (09:21)
[2019-08-19] MEDS: NICOTINE 21 MG/24 HOUR PATCH TD SCH (09:21)
[2019-08-19] MEDS: PANTOPRAZOLE SODIUM 40 MG DR TABLET PO SCH (09:21)
[2019-08-19] MEDS: FERROUS SULFATE 325 MG EC TABLET PO SCH ×3 (09:21→17:34)
[2019-08-19] MEDS: DIVALPROEX SODIUM 500 MG DR TABLET PO SCH (09:21)
[2019-08-20] VITALS (7 sets, daily range): BP systolic 95–133; BP diastolic 49–75
[2019-08-20] MEDS: DIVALPROEX SODIUM 500 MG DR TABLET PO SCH ×3 (00:14→23:45)
[2019-08-20] MEDS: MIRTAZAPINE 15 MG TABLET PO SCH ×2 (00:15→23:46)
[2019-08-20] MEDS: PANTOPRAZOLE SODIUM 40 MG DR TABLET PO SCH ×3 (00:15→23:47)
[2019-08-20] MEDS: QUEtiapine FUMARATE 200 MG TABLET PO SCH ×2 (00:15→23:46)
[2019-08-20] MEDS: LEVOTHYROXINE SODIUM 75 MCG TABLET PO SCH (06:29)
[2019-08-20] MEDS: ARIPiprazole 10 MG TABLET PO SCH (08:01)
[2019-08-20] MEDS: FERROUS SULFATE 325 MG EC TABLET PO SCH ×3 (08:02→18:04)
[2019-08-20] MEDS: CHOLECALCIFEROL (VIT D3) 1,000 UNITS TABLET PO SCH (08:02)
[2019-08-20 08:13] LABS: ALBUMIN 2.5 g/dL (3.4-5.0); BILIRUBIN,TOTAL 0.2 mg/dL (0.1-1.0); CALCIUM, TOTAL 8.5 mg/dL (8.8-10.5); CREATININE 1.88 mg/dL (0.60-1.30); POTASSIUM 4.2 mmol/L (3.5-5.1); TOTAL PROTEIN, SERUM 5.8 g/dL (6.4-8.2)
[2019-08-20] MEDS: EPOETIN ALFA 10,000 UNITS/ML VIAL SQ SCH ×3 (09:00→10:54)
[2019-08-20] MEDS: POLYETHYLENE GLYCOL 3350 17 GM PACKET PO SCH ×2 (09:00→21:00)
[2019-08-20] MEDS: NICOTINE 21 MG/24 HOUR PATCH TD SCH (10:49)
[2019-08-20] MEDS: ONDANSETRON HCL 4 MG/2 ML VIAL IVP PRN (22:16)
[2019-08-20] MEDS: ACETAMINOPHEN 325 MG TABLET PO PRN (23:45)
[2019-08-21] VITALS (10 sets, daily range): BP systolic 94–121; BP diastolic 52–69
[2019-08-21] MEDS: LEVOTHYROXINE SODIUM 75 MCG TABLET PO SCH (05:39)
[2019-08-21 07:43] LABS: BASOPHILS % (AUTO) 0.3 % (0.0-2.0); EOSINOPHILS % (AUTO) 0.2 % (1.0-6.0); LYMPHOCYTES # (AUTO) 1.1 K/uL (1.0-4.8); LYMPHOCYTES % (AUTO) 10.5 % (22.0-44.0); MEAN CORPUSCULAR HEMOGLOBIN 31.1 pg (26.0-34.0); MEAN CORPUSCULAR HGB CONC 34.3 G/dL (31.0-37.0); MEAN CORPUSCULAR VOLUME 91 fL (80-100); MONOCYTES # (AUTO) 0.6 K/uL (0.1-1.0); MONOCYTES % (AUTO) 5.9 % (2.0-9.0); NEUTROPHILS # (AUTO) 8.5 K/uL (1.8-7.7); NEUTROPHILS % (AUTO) 83.1 % (40.0-70.0); PLATELET COUNT (AUTO) 342 K/uL (150-450); RED BLOOD CELL COUNT(AUTO) 2.17 MIL/uL (4.50-5.90); RED CELL DISTRIBUTION WIDTH 18.3 % (11.5-14.5)
[2019-08-21 07:53] LABS: HEMOGLOBIN 6.7 g/dL (13.5-17.5)
[2019-08-21 07:54] LABS: HEMATOCRIT 19.7 % (41-53)
[2019-08-21 07:58] LABS: BILIRUBIN,TOTAL 0.2 mg/dL (0.1-1.0); CALCIUM, TOTAL 8.2 mg/dL (8.8-10.5); CREATININE 1.72 mg/dL (0.60-1.30); POTASSIUM 4.3 mmol/L (3.5-5.1); TOTAL PROTEIN, SERUM 5.1 g/dL (6.4-8.2)
[2019-08-21] MEDS: PANTOPRAZOLE SODIUM 40 MG DR TABLET PO SCH ×2 (08:16→22:00)
[2019-08-21] MEDS: ARIPiprazole 10 MG TABLET PO SCH (08:16)
[2019-08-21] MEDS: CHOLECALCIFEROL (VIT D3) 1,000 UNITS TABLET PO SCH (08:16)
[2019-08-21] MEDS: FERROUS SULFATE 325 MG EC TABLET PO SCH ×4 (08:16→18:07)
[2019-08-21] MEDS: NICOTINE 21 MG/24 HOUR PATCH TD SCH (08:17)
[2019-08-21] MEDS: POLYETHYLENE GLYCOL 3350 17 GM PACKET PO SCH ×2 (09:00→22:00)
[2019-08-21] MEDS: ONDANSETRON HCL 4 MG/2 ML VIAL IVP PRN (10:25)
[2019-08-21] MEDS ORDERED: SODIUM CHLORIDE 0.9% 250 ML IV ONE (12:14)
[2019-08-21] MEDS: DIVALPROEX SODIUM 500 MG DR TABLET PO SCH ×2 (12:22→21:59)
[2019-08-21] MEDS: MIRTAZAPINE 15 MG TABLET PO SCH (22:00)
[2019-08-21] MEDS: QUEtiapine FUMARATE 200 MG TABLET PO SCH (22:07)
[2019-08-22] VITALS (7 sets, daily range): BP systolic 91–126; BP diastolic 65–82
[2019-08-22] MEDS: LEVOTHYROXINE SODIUM 75 MCG TABLET PO SCH (06:53)
[2019-08-22 08:03] LABS: ALBUMIN 1.9 g/dL (3.4-5.0); BILIRUBIN,TOTAL 0.2 mg/dL (0.1-1.0); CALCIUM, TOTAL 7.9 mg/dL (8.8-10.5); CREATININE 1.83 mg/dL (0.60-1.30); POTASSIUM 4.4 mmol/L (3.5-5.1)
[2019-08-22] MEDS: PANTOPRAZOLE SODIUM 40 MG DR TABLET PO SCH ×2 (08:03→20:35)
[2019-08-22] MEDS: ARIPiprazole 10 MG TABLET PO SCH (08:03)
[2019-08-22] MEDS: POLYETHYLENE GLYCOL 3350 17 GM PACKET PO SCH ×2 (08:03→19:29)
[2019-08-22] MEDS: DIVALPROEX SODIUM 500 MG DR TABLET PO SCH ×2 (08:03→20:36)
[2019-08-22] MEDS: CHOLECALCIFEROL (VIT D3) 1,000 UNITS TABLET PO SCH (08:03)
[2019-08-22] MEDS: FERROUS SULFATE 325 MG EC TABLET PO SCH ×3 (08:03→17:09)
[2019-08-22] MEDS: NICOTINE 21 MG/24 HOUR PATCH TD SCH (08:04)
[2019-08-22 08:30] LABS: BASOPHILS % (AUTO) 0.4 % (0.0-2.0); HEMATOCRIT 22.3 % (41-53); HEMOGLOBIN 7.5 g/dL (13.5-17.5); LYMPHOCYTES # (AUTO) 1.7 K/uL (1.0-4.8); LYMPHOCYTES % (AUTO) 21.2 % (22.0-44.0); MEAN CORPUSCULAR HEMOGLOBIN 30.8 pg (26.0-34.0); MEAN CORPUSCULAR HGB CONC 33.9 G/dL (31.0-37.0); MEAN CORPUSCULAR VOLUME 91 fL (80-100); MONOCYTES # (AUTO) 0.7 K/uL (0.1-1.0); MONOCYTES % (AUTO) 9.3 % (2.0-9.0); NEUTROPHILS # (AUTO) 5.4 K/uL (1.8-7.7); NEUTROPHILS % (AUTO) 68.1 % (40.0-70.0); PLATELET COUNT (AUTO) 370 K/uL (150-450); RED BLOOD CELL COUNT(AUTO) 2.45 MIL/uL (4.50-5.90)
[2019-08-22] MEDS: ACETAMINOPHEN 325 MG TABLET PO PRN (17:09)
[2019-08-22] MEDS: QUEtiapine FUMARATE 200 MG TABLET PO SCH (20:36)
[2019-08-22] MEDS: MIRTAZAPINE 15 MG TABLET PO SCH (20:36)
[2019-08-23 04:15] VITALS: BP 122/76
[2019-08-23] MEDS: LEVOTHYROXINE SODIUM 75 MCG TABLET PO SCH (06:40)
[2019-08-23 07:24] LABS: ALBUMIN 2.2 g/dL (3.4-5.0); BILIRUBIN,TOTAL 0.2 mg/dL (0.1-1.0); CALCIUM, TOTAL 8.5 mg/dL (8.8-10.5); CREATININE 1.85 mg/dL (0.60-1.30); POTASSIUM 5.3 mmol/L (3.5-5.1); TOTAL PROTEIN, SERUM 5.8 g/dL (6.4-8.2)
[2019-08-23] MEDS: ARIPiprazole 10 MG TABLET PO SCH (07:43)
[2019-08-23] MEDS: DIVALPROEX SODIUM 500 MG DR TABLET PO SCH ×2 (07:43→20:37)
[2019-08-23] MEDS: FERROUS SULFATE 325 MG EC TABLET PO SCH ×3 (07:43→16:15)
[2019-08-23] MEDS: POLYETHYLENE GLYCOL 3350 17 GM PACKET PO SCH ×2 (07:43→21:00)
[2019-08-23] MEDS: PANTOPRAZOLE SODIUM 40 MG DR TABLET PO SCH ×2 (07:43→20:37)
[2019-08-23] MEDS: NICOTINE 21 MG/24 HOUR PATCH TD SCH (07:44)
[2019-08-23] MEDS: CHOLECALCIFEROL (VIT D3) 1,000 UNITS TABLET PO SCH (07:45)
[2019-08-23] MEDS: EPOETIN ALFA 10,000 UNITS/ML VIAL SQ SCH (07:45)
[2019-08-23] MEDS ORDERED: LORazepam 2 MG/ML VIAL IM ONE (14:15)
[2019-08-23] MEDS ORDERED: DiphenhydrAMINE HCL 50 MG/ML VIAL IM ONE (14:15)
[2019-08-23] MEDS ORDERED: HALOPERIDOL LACTATE 5 MG/ML VIAL IM ONE (14:15)
[2019-08-23] MEDS ORDERED: HALOPERIDOL LACTATE 5 MG/ML VIAL ONE (14:18)
[2019-08-23] MEDS ORDERED: DiphenhydrAMINE HCL 50 MG/ML VIAL ONE (14:18)
[2019-08-23] MEDS ORDERED: LORazepam 2 MG/ML VIAL ONE (14:19)
[2019-08-23 15:47] VITALS: BP 125/68
[2019-08-23 20:00] VITALS: BP 93/71
[2019-08-23] MEDS: QUEtiapine FUMARATE 200 MG TABLET PO SCH (20:37)
[2019-08-23] MEDS: MIRTAZAPINE 15 MG TABLET PO SCH (20:37)
[2019-08-24] VITALS: BP 100/75
[2019-08-24 07:00] VITALS: BP 99/49
[2019-08-24] MEDS: LEVOTHYROXINE SODIUM 75 MCG TABLET PO SCH (07:20)
[2019-08-24] MEDS: FERROUS SULFATE 325 MG EC TABLET PO SCH ×3 (08:04→17:43)
[2019-08-24] MEDS: DIVALPROEX SODIUM 500 MG DR TABLET PO SCH ×2 (08:04→21:19)
[2019-08-24] MEDS: ARIPiprazole 10 MG TABLET PO SCH (08:04)
[2019-08-24] MEDS: PANTOPRAZOLE SODIUM 40 MG DR TABLET PO SCH ×2 (08:04→21:20)
[2019-08-24] MEDS: CHOLECALCIFEROL (VIT D3) 1,000 UNITS TABLET PO SCH (08:04)
[2019-08-24] MEDS: POLYETHYLENE GLYCOL 3350 17 GM PACKET PO SCH ×2 (08:06→21:00)
[2019-08-24] MEDS: NICOTINE 21 MG/24 HOUR PATCH TD SCH (08:06)
[2019-08-24] MEDS ORDERED: ZOLPIDEM TARTRATE 10 MG TABLET PO PRN (10:15)
[2019-08-24] MEDS ORDERED: HALOPERIDOL 5 MG TABLET PO PRN (10:15)
[2019-08-24] MEDS ORDERED: LORazepam 2 MG TABLET PO PRN (10:15)
[2019-08-24 20:30] VITALS: BP 118/83
[2019-08-24] MEDS: QUEtiapine FUMARATE 200 MG TABLET PO SCH (21:20)
[2019-08-24] MEDS: MIRTAZAPINE 15 MG TABLET PO SCH (21:20)
[2019-08-25] VITALS: BP 115/66
[2019-08-25 06:00] VITALS: BP 106/59
[2019-08-25] MEDS: LEVOTHYROXINE SODIUM 75 MCG TABLET PO SCH (06:21)
[2019-08-25 07:36] VITALS: BP 114/70
[2019-08-25] MEDS: FERROUS SULFATE 325 MG EC TABLET PO SCH ×3 (08:29→18:02)
[2019-08-25] MEDS: DIVALPROEX SODIUM 500 MG DR TABLET PO SCH ×2 (08:29→20:31)
[2019-08-25] MEDS: ARIPiprazole 10 MG TABLET PO SCH (08:29)
[2019-08-25] MEDS: PANTOPRAZOLE SODIUM 40 MG DR TABLET PO SCH ×2 (08:29→20:31)
[2019-08-25] MEDS: CHOLECALCIFEROL (VIT D3) 1,000 UNITS TABLET PO SCH (08:29)
[2019-08-25] MEDS: EPOETIN ALFA 10,000 UNITS/ML VIAL SQ SCH (08:31)
[2019-08-25] MEDS: NICOTINE 21 MG/24 HOUR PATCH TD SCH (08:32)
[2019-08-25] MEDS: POLYETHYLENE GLYCOL 3350 17 GM PACKET PO SCH ×2 (08:33→20:39)
[2019-08-25 09:53] LABS: BASOPHILS % (AUTO) 0.7 % (0.0-2.0); EOSINOPHILS % (AUTO) 2.5 % (1.0-6.0); HEMATOCRIT 27.2 % (41-53); HEMOGLOBIN 8.9 g/dL (13.5-17.5); LYMPHOCYTES # (AUTO) 1.8 K/uL (1.0-4.8); LYMPHOCYTES % (AUTO) 25.2 % (22.0-44.0); MEAN CORPUSCULAR HEMOGLOBIN 29.6 pg (26.0-34.0); MEAN CORPUSCULAR HGB CONC 32.8 G/dL (31.0-37.0); MEAN CORPUSCULAR VOLUME 90 fL (80-100); MONOCYTES # (AUTO) 0.5 K/uL (0.1-1.0); MONOCYTES % (AUTO) 7.6 % (2.0-9.0); NEUTROPHILS # (AUTO) 4.5 K/uL (1.8-7.7); PLATELET COUNT (AUTO) 419 K/uL (150-450); RED BLOOD CELL COUNT(AUTO) 3.02 MIL/uL (4.50-5.90); RED CELL DISTRIBUTION WIDTH 18.1 % (11.5-14.5)
[2019-08-25 10:00] LABS: CALCIUM, TOTAL 8.4 mg/dL (8.8-10.5); CREATININE 1.55 mg/dL (0.60-1.30); POTASSIUM 4.9 mmol/L (3.5-5.1)
[2019-08-25] MEDS ORDERED: DEXTROSE 5%-WATER 1,000 ML IV ONE (10:30)
[2019-08-25 11:26] VITALS: BP 118/64
[2019-08-25 15:39] VITALS: BP 116/68
[2019-08-25 19:17] VITALS: BP 120/69
[2019-08-25] MEDS: MIRTAZAPINE 15 MG TABLET PO SCH (20:31)
[2019-08-25] MEDS: QUEtiapine FUMARATE 200 MG TABLET PO SCH (20:37)
[2019-08-26 00:40] VITALS: BP 138/79
[2019-08-26] MEDS: LEVOTHYROXINE SODIUM 75 MCG TABLET PO SCH (06:15)
[2019-08-26 07:23] LABS: CALCIUM, TOTAL 8.3 mg/dL (8.8-10.5); CREATININE 1.64 mg/dL (0.60-1.30); POTASSIUM 4.7 mmol/L (3.5-5.1)
[2019-08-26] MEDS: DIVALPROEX SODIUM 500 MG DR TABLET PO SCH (08:06)
[2019-08-26] MEDS: ARIPiprazole 10 MG TABLET PO SCH (08:06)
[2019-08-26] MEDS: CHOLECALCIFEROL (VIT D3) 1,000 UNITS TABLET PO SCH (08:06)
[2019-08-26] MEDS: PANTOPRAZOLE SODIUM 40 MG DR TABLET PO SCH (08:06)
[2019-08-26] MEDS: POLYETHYLENE GLYCOL 3350 17 GM PACKET PO SCH (08:06)
[2019-08-26] MEDS: FERROUS SULFATE 325 MG EC TABLET PO SCH (08:06)
[2019-08-26] MEDS: NICOTINE 21 MG/24 HOUR PATCH TD SCH (08:09)
[2019-08-26 08:50] VITALS: BP 106/69
[2019-08-26] MEDS ORDERED: ARIP10TA8 PO (08:53)
[2019-08-26] MEDS ORDERED: DIVA-78 PO (08:54)
[2019-08-26] MEDS ORDERED: FERR-89 PO (08:56)
[2019-08-26] MEDS ORDERED: PANT40TA25 PO (08:57)
== END 2019-08-26 10:40 | DRG 380 ==
LOC: 5N 00:30 → 6N 08-19 20:00 → 6S 08-23 06:27
PROVIDERS: ADMIT Internal Medicine; ATTEND Internal Medicine
PROC: 30233N1 Transfusion of Nonautologous Red Blood Cells into Peripheral Vein, Percutaneous Approach (ICD-10-PCS; 2019-08-15)
PROC: 0DB28ZX Excision of Middle Esophagus, Via Natural or Artificial Opening Endoscopic, Diagnostic (ICD-10-PCS; principal; 2019-08-15 16:30)
DX: K22.11 Ulcer of esophagus with bleeding (principal); E43 Unspecified severe protein-calorie malnutrition; N17.9 Acute kidney failure, unspecified; D62 Acute posthemorrhagic anemia; I13.0 Hypertensive heart and chronic kidney disease with heart failure and stage 1 through stage 4 chronic kidney disease, or unspecified chronic kidney disease; I89.0 Lymphedema, not elsewhere classified; E78.5 Hyperlipidemia, unspecified; N18.3 Chronic kidney disease, stage 3 (moderate); F25.0 Schizoaffective disorder, bipolar type; K44.9 Diaphragmatic hernia without obstruction or gangrene; E03.9 Hypothyroidism, unspecified; I95.9 Hypotension, unspecified; R45.87 Impulsiveness; K56.41 Fecal impaction; I70.0 Atherosclerosis of aorta; F17.210 Nicotine dependence, cigarettes, uncomplicated; I50.9 Heart failure, unspecified; Z81.8 Family history of other mental and behavioral disorders; Z91.19 Patient's noncompliance with other medical treatment and regimen; Z59.0 Homelessness; Z88.0 Allergy status to penicillin; Z88.8 Allergy status to other drugs, medicaments and biological substances; Z79.82 Long term (current) use of aspirin; Z79.899 Other long term (current) drug therapy; Z68.25 Body mass index [BMI] 25.0-25.9, adult
CPT/HCPCS: 74018; 74176; 82728; 83540; 84443; 85014; 85018; 86850; 86900; 86901; 86920; 87040; 88305; 88312; 93308; C9113; J0885; J1200; J1630; J1940; J2060; J2250; J2405; J3010; J7030; J7050; J7060; P9016